=== PATIENT | female | born 1970 | race Caucasian/White ===

== ENCOUNTER → 2016-10-01 | Day surgery (SDC) | payer BC ==
[2016-09-25 11:44] VITALS: BMI 48.0
[~2016-10-01] VITALS: Ht 157.5 cm; Wt 119.5 kg
[~2016-10-01] MED LIST: ERGO500037 PO; LIDOCAINE HCL 2% 2 ML VIAL (20MG/ML) ONE; PROPOFOL IV EMULSION 10 MG/ML 20 ML VIAL IV ONE; SERT25TA PO; VITAMIN B12 INJ INJ
[2016-10-01 11:37] VITALS: Ht 157.5 cm; Wt 119.5 kg
--- NOTE | 2016-10-01 12:33 | Endo History and Physical ---
History & Physical Date of Service: October 01, 2016. Chief Complaint: Iron def anemia Referring Physician: Dr. Latrice Lemons History of Present Illness 46 yo presenting for EGD/Colonoscopy for asymptomatic iron deficiency anemia Past Surgical History Hx Cardiac Surgery: No Hx Internal Defibrillator: No Hx Pacemaker: No Hx Abdominal Surgery: Yes (GASTRIC BYPASS, TUBAL LIGATION, LAPAROSCOPY) Hx of Implantable Prosthesis: No Hx Post-Op Nausea and Vomiting: Yes Hx Cancer Surgery: No Hx Thoracic Surgery: No Hx Orthopedic: No Hx Urinary Tract Surgery: No Family History None Social History Smoking Status: Never Smoker Hx Substance Use: No Hx Alcohol Use: No Allergies Coded Allergies: NO KNOWN DRUG ALLERGIES (Verified Allergy, Unknown, ., 09/25/16) Current Medications Reported Home Medications Medications Dose Route/Sig Max Daily Dose Days Date Category Vitamin D 40275 Unit (Ergocalciferol) 50,000 Unit Cap 50,000 Unit PO WK 09/25/16 Reported Zoloft (Sertraline HCl) 25 Mg Tab 25 Mg PO HS 09/25/16 Reported Vital Signs Weight (Kilograms): 119.55 Height (Feet): 5 Height (Inches): 2 Date Time Temp Pulse Resp B/P Pulse Ox O2 Delivery O2 Flow Rate FiO2 10/01/16 11:43 36.8 82 18 147/70 97 Room Air Physical Exam General Appearance: WD/WN, no apparent distress Respiratory/Chest: Respiratory effort: no dyspnea Auscultation: breath sounds normal, CTA except as noted Cardiovascular: Apical Impulse: not displaced Heart Auscultation: RRR, normal S2 Assessment and Plan 46 yo presenting for EGD/Colonoscopy for anemia
--- NOTE | 2016-10-01 13:00 | GI REPORT ---
Procedure Date: 10/01/2016 12:36 PM Procedure: Upper GI endoscopy Indications: Iron deficiency anemia Medicines: General Anesthesia Complications: No immediate complications. Estimated blood loss: None. Estimated Blood Loss: Estimated blood loss: none. Procedure: Pre-Anesthesia Assessment: - Pre-Anesthesia Assessment: - Prior to the procedure, a History and Physical was performed, and patient medications, allergies and sensitivities were reviewed. The patient's tolerance of previous anesthesia was reviewed. Please see MyTime for complete details. - The risks and benefits of the procedure and the sedation options and risks were discussed with the patient. All questions were answered and informed consent was obtained. - Patient identification and proposed procedure were verified prior to the procedure by the physician and the nurse. The procedure was verified in the pre-procedure area in the procedure room. After obtaining informed consent, the endoscope was passed carefully and meticuously under direct vision and only advanced when the lumen was clearly identified, C02 insuflation was utilized throughout the entirity of the procedure. Throughout the procedure, the patient's blood pressure, pulse, and oxygen saturations were monitored continuously. After obtaining informed consent, the endoscope was passed under direct vision. Throughout the procedure, the patient's blood pressure, pulse, and oxygen saturations were monitored continuously. The scope was introduced through the mouth, and advanced to the jejunum. The upper GI endoscopy was accomplished without difficulty. The patient tolerated the procedure well. Findings: The examined esophagus was normal. Evidence of a Trevor-en-Y gastrojejunostomy was found. The gastrojejunal anastomosis was characterized by healthy appearing mucosa. The examined jejunum was normal. Impression: - Normal esophagus. - Trevor-en-Y gastrojejunostomy with gastrojejunal anastomosis characterized by healthy appearing mucosa. - Normal examined jejunum. - No specimens collected. Recommendation: - Discharge patient to home (with escort). - Perform a colonoscopy today. Roger Cabrera MD 10/01/2016 12:59:44 PM This report has been signed electronically. Note Initiated On: 10/01/2016 12:36 PM I attest to the content of the Intraoperative Record and orders documented therein, exceptions below
--- NOTE | 2016-10-01 13:02 | GI REPORT ---
Procedure Date: 10/01/2016 12:40 PM Procedure: Colonoscopy Indications: Iron deficiency anemia Medicines: General Anesthesia Complications: No immediate complications. Estimated blood loss: None. Estimated Blood Loss: Estimated blood loss: none. Procedure: Pre-Anesthesia Assessment: - Pre-Anesthesia Assessment: - Prior to the procedure, a History and Physical was performed, and patient medications, allergies and sensitivities were reviewed. The patient's tolerance of previous anesthesia was reviewed. Please see Weight Wins for complete details. - The risks and benefits of the procedure and the sedation options and risks were discussed with the patient. All questions were answered and informed consent was obtained. - Patient identification and proposed procedure were verified prior to the procedure by the physician and the nurse. The procedure was verified in the pre-procedure area in the procedure room. After obtaining informed consent, the endoscope was passed carefully and meticuously under direct vision and only advanced when the lumen was clearly identified, C02 insuflation was utilized throughout the entirity of the procedure. Throughout the procedure, the patient's blood pressure, pulse, and oxygen saturations were monitored continuously. After I obtained informed consent, the scope was passed under direct vision. Throughout the procedure, the patient's blood pressure, pulse, and oxygen saturations were monitored continuously. The scope was introduced through the anus and advanced to the terminal ileum, with identification of the appendiceal orifice and IC valve. The colonoscopy was performed without difficulty. The patient tolerated the procedure well. The quality of the bowel preparation was good. Findings: Internal hemorrhoids were found during retroflexion. The hemorrhoids were Grade I (internal hemorrhoids that do not prolapse). The terminal ileum appeared normal. The exam was otherwise without abnormality on direct and retroflexion views. Impression: - Internal hemorrhoids. - The examined portion of the ileum was normal. - The examination was otherwise normal on direct and retroflexion views. - No specimens collected. Recommendation: - Discharge patient to home (with escort). - Repeat colonoscopy in 10 years for screening purposes. - Anemia may be due gastric bypass anatomy, consider IV iron infusions and or [employer]OR causes Roger Cabrera MD 10/01/2016 1:01:08 PM This report has been signed electronically. Note Initiated On: 10/01/2016 12:40 PM I attest to the content of the Intraoperative Record and orders documented therein, exceptions below
--- NOTE | 2016-10-01 13:05 | Discharge Instructions ---
Endoscopy Patient Instructions Date / Procedure(s) Performed October 01, 2016. Colonoscopy, EGD Allergy Information Coded Allergies: NO KNOWN DRUG ALLERGIES (Verified Allergy, Unknown, ., 09/25/16) Discharge Date / Findings October 01, 2016. Normal EGD and colonoscopy Provider Instructions Activity Restrictions - No exercising or heavy lifting for 24 hours. - Do not drink alcohol the day of the procedure. - Do not drive a car or operate machinery until the day after the procedure. - Do not make any important decisions or sign important papers in 24 hours after the procedure. Following Day: - Return to full activity which may include returning to work/school. Diet Start your diet with liquids and light foods (jello, soup, juice, toast). Then eat your usual diet if not nauseated. Treatment For Common After Affects For mild abdominal pain, bloating, or excessive gas: - Rest - Eat lightly - Lie on right side Follow-Up Information Follow-up with Dr. Latrice Lemons as scheduled Anesthesia Information What You Should Know You have had a procedure that required some medicine to reduce anxiety and discomfort. This treatment is called moderate sedation. After receiving the treatment, you may be sleepy, but you will be able to breathe on your own. The effects of the treatment may last for several hours. Follow these instructions along with Activity/Diet recommendations noted above: * Do NOT do anything where dizziness or clumsiness would be dangerous. * Rest quietly at home today, then you can be up and about tomorrow. * Have a responsible person stay with you the rest of today. * You may have had an I.V. today. If so, you may take the dressing off later today. Recommendations Call your doctor if: * Trouble breathing * Continuous vomiting for more than 24 hours * Temperature above 101 degrees * Severe abdominal pain or bloating * Pain not relieved by pain medicine ordered * There is increased drainage or redness from any incision * A large amount of rectal bleeding greater than 2-3 tablespoons. (If you had a polyp/s removed or have hemorrhoids, a small amount of blood - from the rectum is to be expected.) * You have any unanswered questions or concerns. IN THE EVENT OF A SERIOUS EMERGENCY, GO TO THE NEAREST EMERGENCY ROOM Your discharge instructions were prepared by provider Roger Cabrera. Patient Instructions Signature Page Aggie Lu Patient (or Guardian) Signature/Date: I have read and understand the instructions given to me by my caregivers. Caregiver/RN/Doctor Signature/Date: The above-named patient and/or guardian has received patient instructions on this date. + Original Patient Signature Page (only) stays with chart. Please make copy for patient.
[2016-10-01 13:20] VITALS: BP 106/67; PULSE 74; O2SAT 100
--- NOTE | 2016-10-01 13:31 | Anesthesiology Progress Note ---
Anesthesia Post Op Note Date & Time October 01, 2016 at 13:31 Vital Signs Pain Intensity: 0 Vital Signs Past 12 Hours Date Time Temp Pulse Resp B/P Pulse Ox O2 Delivery O2 Flow Rate FiO2 10/01/16 13:20 74 16 106/67 100 Room Air 10/01/16 13:10 76 16 107/67 99 Room Air 10/01/16 13:00 74 16 98/56 98 Room Air 10/01/16 11:43 36.8 82 18 147/70 97 Room Air Notes Mental Status: alert / awake / arousable, participated in evaluation Pt Amnestic to Procedure: Yes Nausea / Vomiting: adequately controlled Pain: adequately controlled Airway Patency, RR, SpO2: stable & adequate BP & HR: stable & adequate Hydration State: stable & adequate Anesthetic Complications: no major complications apparent
== END | disposition home or self-care (01) ==
LOC: C.GI 11:17
PROVIDERS: ATTEND Internal Medicine
DX: D50.9 Iron deficiency anemia, unspecified (principal); Z98.84 Bariatric surgery status; K64.8 Other hemorrhoids

== ENCOUNTER 2016-11-29 05:09 | Day surgery (SDC) | payer BC ==
[2016-11-05 15:26] VITALS: BMI 49.0
[2016-11-05 15:38] LABS: BASO % 0.7 %; BASO ABS # 0.04 K/uL (0-0.2); EOS % 1.8 %; HEMATOCRIT 37.3 % (37-47); IG% 0.2 %; LYMPH % 24.3 %; LYMPH ABS # 1.36 K/uL (1.2-3.4); MEAN CELL VOLUME 72.1 fL (80-100); MEAN CORPUSCULAR HEMOGLOBIN 21.3 pg (25-34); MEAN CORPUSCULAR HGB CONC 29.5 g/dl (32-36); MEAN PLATELET VOLUME 9.5 fL (7.4-10.4); MONO % 7.7 %; NEUT % 65.3 %; PLATELET COUNT 270 K/uL (130-400); RED BLOOD COUNT 5.17 M/uL (4.2-5.4)
--- NOTE | 2016-11-05 15:51 | PAT Medication Instructions ---
Service Date Nov 05, 2016. Current Home Medication List Ergocalciferol (Vitamin D 81635 Unit), 50,000 UNIT PO WK Sertraline (Zoloft), 25 MG PO HS [Vitamin B12 Inj], 1 DOSE INJ MONTHLY Medication Instructions For Your Scheduled Surgery - Continue as directed: Ergocalciferol (Vitamin D 66094 Unit), 50,000 UNIT PO WK [Vitamin B12 Inj], 1 DOSE INJ MONTHLY - Take the following medications as scheduled the night before surgery: Sertraline (Zoloft), 25 MG PO HS If you have any questions please call us at [phone] or [phone] or [phone]
[2016-11-05 16:07] LABS: ANISOCYTOSIS PRESENT; COMPLETE YES; OVALOCYTES 1+
[2016-11-05 16:40] LABS: BUN/CREATININE RATIO 19.9 (10-20); CALCIUM 8.7 mg/dl (8.5-10.1); CREATININE 0.5 mg/dl (0.60-1.20); POTASSIUM 4.1 mmol/L (3.5-5.1)
[~2016-11-29] VITALS: Ht 157.5 cm; Wt 121.2 kg
[~2016-11-29 05:09] MED LIST changes: -LIDOCAINE HCL 2% 2 ML VIAL (20MG/ML) ONE; -PROPOFOL IV EMULSION 10 MG/ML 20 ML VIAL IV ONE
[2016-11-29 05:42] VITALS: BP 137/89; PULSE 72; TEMP 36.2; O2SAT 97; Ht 157.5 cm; Wt 121.2 kg
[2016-11-29] MEDS ORDERED: LACTATED RINGER'S 1000ML 1,000 ML IV SCH ×2 (06:00)
[2016-11-29] MEDS ORDERED: FERRIC SUBSULFATE 8 GM VIAL ONE (06:31)
[2016-11-29] MEDS ORDERED: DEXAMETHASONE SOD INJ 4 MG/ML VIAL ONE (06:52)
[2016-11-29] MEDS ORDERED: MIDAZOLAM HCL 1 MG/ML 2ML VIAL ONE (06:52)
[2016-11-29] MEDS ORDERED: FENTANYL CITRATE INJ 50 MCG/1 ML 2 ML VIAL ONE ×3 (06:52→08:16)
[2016-11-29] MEDS ORDERED: LIDOCAINE HCL 2% 2 ML VIAL (20MG/ML) ONE (06:52)
[2016-11-29] MEDS ORDERED: ROCURONIUM BROMID 50MG/5ML SYR ONE (06:52)
[2016-11-29] MEDS ORDERED: PROPOFOL IV EMULSION 10 MG/ML 20 ML VIAL IV ONE (06:52)
[2016-11-29] MEDS ORDERED: ONDANSETRON INJ 2 MG/ML 2 ML VIAL ONE ×2 (06:52→08:16)
--- NOTE | 2016-11-29 06:57 | History & Physical Bridge Note ---
H&P Re-Evaluation Bridge Note: I have examined the patient, reviewed the History & Physical and in the interval since the performance of the History & Physical I have noted the following changes of clinical significance: No changes noted
[2016-11-29] MEDS ORDERED: SCOPOLAMINE 1.5 MG TDSY TD ONE (07:02)
[2016-11-29] MEDS ORDERED: CEFAZOLIN SOD 1 GM VIAL ONE (07:11)
[2016-11-29] MEDS ORDERED: GLYCOPYRROLATE INJ 0.2 MG/ML VIAL ONE (07:32)
[2016-11-29] MEDS ORDERED: NEOSTIGMINE METHYLSULFATE 5 MG/5 ML SYR ONE (07:32)
[2016-11-29] MEDS ORDERED: PHENYLEPHRINE HCL INJ 10 MG/ML VIAL ONE (07:33)
--- NOTE | 2016-11-29 08:00 | [facility] Post Operative Brief Note ---
Immediate Operative Summary Operative Date Nov 29, 2016. Pre-Operative Diagnosis menorrhagia, endometrial polyp, h/o endometrial ablation Post-Operative Diagnosis menorrhagia, endometrial polyp vs submucosal fibroid Procedure(s) Performed Evaluation Under Anesthesia, Hysteroscopy, Dilation & Currettage, Polypectomy with Myosure Surgeon Dr. Sneed Transmission Design Engineer Surgeon(s) none Estimated Blood Loss 10mL Findings 1X1.5 CM sessile endometrial polyp vs submucosal fibroid Specimens A: Endometrial currettings B: Endometrial polyp vs. Fibroid Drains 300 ml urine Anesthesia GETA Complication(s) None Disposition Recovery Room / PACU
[2016-11-29] MEDS ORDERED: SODIUM CHLORIDE 0.9% 1000ML 1,000 ML IV SCH (08:05)
--- NOTE | 2016-11-29 08:09 | Discharge Instructions-SurgCtr ---
Discharge Instructions Date of Service Nov 29, 2016. Visit Reason for Visit: Heavy Periods, Endometrial Polysp, S/P Ablation Discharge Discharge Diagnosis / Problem: Hysteroscopy, polypectomy, D&C Discharge Goals Goal(s): Decrease discomfort, Improve function Activity Recommendations Activity Limitations: as noted below Lifting Limitations: gradually increase as tolerated Exercise/Sports Limitations: until after follow-up appointment May Resume Sexual Activity: after follow-up appointment Shower/Bathe: no limitations Driving or Machine Use: ACTIVITY RECOMMENDATIONS: * Avoid tampons, douching, hot tubs, pools, and intercourse until bleeding has stopped. * May shower as usual. * No strenuous activity for 24-48 hours. After 24-48 hours, you may do anything you feel like doing (driving and sports are okay). SPECIAL CARE INSTRUCTIONS: Special Diet: * Mild nausea may occur in the immediate post-operative period. * Take clear liquids such as tea, cola or bouillon until all nausea has subsided; you may then resume your normal diet. Special Care: * Light bleeding and vaginal spotting can last from a few days to 3-4 weeks. Call your doctor if bleeding becomes heavier than the heaviest part of your period. * Check your temperature twice a day for one week. If it goes above 100.4 degrees Fahrenheit (38.0 Celsius), notify your doctor. * Call your doctor's office for an appointment for 2 weeks after your surgery. FOLLOW-UP VISIT: Call your doctor's office for an appointment for 2 weeks after your surgery. Anesthesia . Post Anesthesia Instructions: If you have had General Anesthesia or IV Sedation: * Do not drive today. * Resume driving when surgeon permits. * Do not make important decisions or sign legal documents today. * Call surgeon for: 1. Temperature elevations greater than 101 degrees F. 2. Uncontrollable pain. 3. Excessive bleeding. 4. Persistent nausea and vomiting. 5. Medication intolerance (nausea, vomiting or rash). * For nausea and vomiting use only clear liquids such as: tea, soda, bouillon until nausea subsides, then gradually increase diet as tolerated. * If you have any concerns or questions, call your surgeon's office. If physician is unavailable and it is an emergency, call 911 or go to the nearest emergency room. . Diet Recommendations Home Diet: resume previous diet Procedures Procedures Performed: Evaluation Under Anesthesia, Hysteroscopy, Dilation & Currettage, Polypectomy with Myosure Pending Studies Studies pending at discharge: no Medical Emergencies . Who to Call and When: Medical Emergencies: If at any time you feel your situation is an emergency, please call 911 immediately. . Non-Emergent Contact Non-Emergency issues call your: Surgeon Call Non-Emergent contact if: temperature is above 100.5, your pain is not controlled, your pain is worsening, your pain is unusual for you . . "Provider Documentation" section prepared by Joe Sneed. .
[2016-11-29] MEDS ORDERED: ESMOLOL HCL 10 MG/ML 10 ML VIAL ONE (08:10)
[2016-11-29] MEDS ORDERED: LABETALOL HCL IV 5 MG/ML 20ML IV PRN (08:15)
[2016-11-29] MEDS ORDERED: HYDROmorphone INJ 1 MG/ML SYR IV PRN (08:15)
[2016-11-29] MEDS ORDERED: PROMETHAZINE HCL INJ 25 MG in SODIUM CHLORIDE 0.9% 50ML 50 ML IV PRN (08:15)
[2016-11-29] MEDS ORDERED: MEPERIDINE HCL 25 MG/ML CARP IV PRN (08:15)
[2016-11-29] MEDS ORDERED: MoRPHine SULFATE 4 MG/ML 1 ML CARP\\VIAL IV PRN ×2 (08:15)
[2016-11-29] MEDS ORDERED: FENTANYL CITRATE INJ 50 MCG/1 ML 2 ML VIAL IV PRN (08:15)
[2016-11-29] MEDS ORDERED: KETOROLAC TROMETHAMINE 30 MG/ML VIAL IV. PRN (08:15)
[2016-11-29] MEDS ORDERED: OXYCODONE/ACETAMINOPHEN 5-325 TAB PO PRN ×2 (08:15)
[2016-11-29] MEDS ORDERED: ATROPINE SULFATE 0.1 MG/ML 5ML SYR IV PRN (08:15)
[2016-11-29] MEDS ORDERED: ONDANSETRON INJ 2 MG/ML 2 ML VIAL IV PRN ×2 (08:15)
[2016-11-29] MEDS ORDERED: EpHEDrine SULFATE INJ 50 MG/ML AMP IV PRN (08:15)
--- NOTE | 2016-11-29 08:19 | [facility] Operative Report ---
Operative Report Operative Date Nov 29, 2016. Pre-Operative Diagnosis 46 yo female with h/o endometrial ablation, menorrhagia, endometrial polyp, morbid obesity Post-Operative Diagnosis menorrhagia, endometrial polyp vs submucosal fibroid Procedure(s) Performed Evaluation Under Anesthesia, Hysteroscopy, Dilation & Currettage, Polypectomy with Myosure Surgeon Dr. Sneed Sock Ironer Surgeon(s) none Estimated Blood Loss 10mL Findings EUA: Stage 2 cystocele, uterine prolapse 1X1.5 CM sessile endometrial polyp vs submucosal fibroid at superior endometrium Intrauterine adhesion/ synechia close to fundus Normal tubal ostia and endometrial lining Specimens A: Endometrial currettings B: Endometrial polyp vs. Fibroid Drains 300 ml urine, straight cath Anesthesia GETA Complication(s) None Disposition Recovery Room / PACU Description of Procedure The patient was taken to OR where anesthesia was given without difficulty. She was placed in lithotomy position and draped in sterile fashion The bladder was drained with straight cath Exam under anesthesia was done with above findings Henry valves were placed in vagina and the cervix was grasped with single tooth tenaculum. It was dilated with Prank dilators until #25. The hysteroscope was introduced from cervix and the cervical canal was noted to be normal Intrauterine cavity was visualized, bilateral tubal ostia were seen There was a 1x1.5 sessile polyp vs submucosal fibroid at the fundal region left to the midline. There was a synechia close to the polyp. The pictures were taken The Myosure was introduced. The polyp vs fibroid was excised under direct visualization, Then the synechia was released with the tip of Myosure. Excellent hemostasis was achieved. The rest of the endometrium was normal The hysteroscope was ended The fluid was removed The endometrium was curetted with small sharp curette and send to pathology. The tenakulum and all instruments were removed from cervix and vagina It was hemostatic No complications happened. The patient tolerated the procedure well She was given 2 gr of Cefazolin before surgery and she was taken to PACU in stable condition The sponge instrument count was correcx2 I attest to the content of the Intraoperative Record and any orders documented therein. Any exceptions are noted below.
[2016-11-29 08:45] VITALS: BP 125/62; PULSE 78; TEMP 36.5; O2SAT 96
[2016-11-29 09:15] VITALS: BP 134/76; PULSE 78; TEMP 36.6; O2SAT 97
[2016-11-29 09:30] VITALS: BP 123/74; O2SAT 97
--- NOTE | 2016-11-29 09:38 | Anesthesiology Progress Note ---
Anesthesia Post Op Note Date & Time Nov 29, 2016 at 09:38 Vital Signs Pain Intensity: 3.0 Vital Signs Past 12 Hours Date Time Temp Pulse Resp B/P (MAP) Pulse Ox O2 Delivery O2 Flow Rate FiO2 11/29/16 09:15 36.6 78 18 134/76 97 Room Air 11/29/16 08:45 36.5 78 18 125/62 96 Room Air 11/29/16 08:40 67 16 113/58 99 Oxymask 3 11/29/16 08:30 36.3 70 16 105/60 96 Oxymask 3 11/29/16 08:20 80 16 111/66 98 Oxymask 5 11/29/16 08:10 85 16 108/73 100 Oxymask 10 11/29/16 08:04 36.7 86 16 121/79 100 Oxymask 10 11/29/16 05:42 36.2 72 20 137/89 (105) 97 Room Air Notes Mental Status: alert / awake / arousable, participated in evaluation Pt Amnestic to Procedure: Yes Nausea / Vomiting: adequately controlled Pain: adequately controlled Airway Patency, RR, SpO2: stable & adequate BP & HR: stable & adequate Hydration State: stable & adequate Anesthetic Complications: no major complications apparent
== END 2016-11-29 09:51 | disposition home or self-care (01) ==
LOC: C.ACU 05:09
PROVIDERS: ATTEND Obstetrics & Gynecology
DX: N92.0 Excessive and frequent menstruation with regular cycle (principal); N84.0 Polyp of corpus uteri; D26.1 Other benign neoplasm of corpus uteri; Z98.84 Bariatric surgery status; E66.01 Morbid (severe) obesity due to excess calories; F32.9 Major depressive disorder, single episode, unspecified; Z68.42 Body mass index [BMI] 45.0-49.9, adult

== ENCOUNTER 2020-05-09 14:38 | Inpatient (IN) ==
[2020-05-09] MEDS ORDERED: SODIUM CHLORIDE 0.9% 1000ML 1,000 ML IV ONE (15:27)
[2020-05-09 15:39] LABS: Mean Corpuscular Hemoglobin 27.6 pg (25-34); Mean Corpuscular Hgb Conc 32.5 g/dL (32-36); Mean Corpuscular Volume 84.9 fL (80-100); Mean Platelet Volume 9.7 fL (7.4-10.4); Nucleated RBC # (auto) 0.08 K/uL (0-0); Nucleated RBC % (auto) 0.8 %; Platelet Count 193 K/uL (130-400); RDW Coefficient of Variation 15.5 % (11.5-14.5); RDW Standard Deviation 45.5 fL (36.4-46.3); Red Blood Count 4.71 M/uL (4.2-5.4); White Blood Count 9.57 K/uL (4.8-10.8)
--- NOTE | 2020-05-09 15:44 | Electrocardiogram Report ---
Test Reason : Blood Pressure : / mmHG Vent. Rate : 115 BPM Atrial Rate : 115 BPM P-R Int : 158 ms QRS Dur : 086 ms QT Int : 352 ms P-R-T Axes : 036 007 -20 degrees QTc Int : 486 ms Sinus tachycardia Poor R wave progression, consider anterior NV vs. lead placement vs. LVH T wave abnormality, consider anterior ischemia Abnormal ECG When compared with ECG of 21-OCT-2017 14:37, Inverted T waves have replaced nonspecific T wave abnormality in Anterior leads Confirmed by Chandra Rodriguez ([id number]) on 05/09/2020 3:44:23 PM Referred By: SELF Confirmed By:Chandra Rodriguez
[2020-05-09 15:48] LABS: iSTAT Creatinine 0.5 mg/dl (0.6-1.3); iSTAT Hemoglobin 12.9 g/dl (12.0-16.0); iSTAT Ionized Calcium 1.18 mmol/l (1.12-1.32); iSTAT Potassium 3.7 mmol/L (3.3-5.0)
--- NOTE | 2020-05-09 15:48 | Emergency Department Note ---
Impression & Plan Pulmonary embolism, Chest pain, Acute dyspnea ED Provider Note NAME: BERT ZUÑIGA AGE: 50 SEX: F : 1970 ARRIVES VIA: Walk-In INFORMANT: Patient, ED PROVIDER(S): Chandra Alvarez DO CHIEF COMPLAINT: Chest pain HPI: The patient is a 50-year-old female who presented to the emergency department for an evaluation of chest pain. The patient describes left-sided chest pain which began approximately 2 to 3 days ago. She was recently diagnosed with breast cancer. She had mastectomy followed by lymph node resection. She was found to have positive lymph nodes. She is currently scheduled for chemotherapy followed by radiation therapy. She was scheduled for another round of chemotherapy. When she went to see her chemotherapy cancer doctor she told him about the chest pain she been having. She was scheduled to have an echocardiogram and went to see [facility] cardiology for the echocardiogram. I received a phone call from Dr. Fierro who did the procedure. He was very concerned about the patient's echocardiogram. She had significant findings including right-sided heart strain and a dilated right ventricle. He was concerned the patient may be suffering from a pulmonary malaise and. The patient denies having any lower extremity swelling or pain. She denies having any recent immobilizations but she did have surgery for the breast cancer. The patient states that she has been having shortness of breath which worsens with exertion. She also has some worsening shortness of breath with lying flat. She is also noted chest pain. The chest pain appears to be more pleuritic in nature and not related to exertion. ROS: See above HPI for pertinent positives & negatives. A total of 10 systems reviewed and were otherwise negative. PAST MEDICAL HISTORY: See Below PAST SURGICAL HISTORY: See Below FAMILY HISTORY: See Below SOCIAL HISTORY: See Below HOME MEDICATIONS: See Below ALLERGIES: See Below VITALS: See Below PHYSICAL EXAMINATION: GENERAL: Patient is awake alert in no acute distress patient is resting comfortably and showing no signs of anxiety EYES: The conjunctivae are clear. The pupils are round and reactive. EARS, NOSE, MOUTH AND THROAT: The nose is without any evidence of any deformity. NECK: The neck is nontender and supple. RESPIRATORY: Shallow respirations were noted. There were no rales rhonchi or wheezing. There was no conversational dyspnea appreciated. CARDIOVASCULAR: Tachycardic rate with regular rhythm was noted. There was no definite murmur. GASTROINTESTINAL: The abdomen is soft. Abdomen is nontender. MUSCULOSKELETAL/EXTREMITIES: There is no evidence of gross deformity full range of motion is noted in the hips and shoulders. SKIN: There is no obvious evidence of any rash. No significant pedal edema or calf tenderness was elicited. NEUROLOGIC: Patient is awake alert and oriented x 3. MEDICAL DECISION MAKING: The patient is a 50-year-old female with a history of breast cancer who prese nted to the emergency department for shortness of breath. The patient developed chest pain over the last few days. She was seen by her primary oncologist and sent for an echocardiogram. The echocardiogram revealed significant right-sided heart strain and RV dilation. The patient was sent directly to the emergency department for suspicion of venous pulmonary thromboembolic disease. The patient was started on IV heparin in the emergency department. She was also given IV fluids. I discussed the patient's laboratory and radiographic studies with her. CT did appear to be consistent with pulmonary embolism. I discussed this case with the on-call [facility] hospitalist group. They have agreed to evaluate the patient in the emergency department for further management and disposition. The patient was found to have a mild elevation in her troponin as well as an abnormal EKG. I feel she would do well with inpatient treatment. Initially the patient's port was accessed for the contrast CT however the contrast extravasated into the left chest wall. The CT was then repeated with a peripheral IV. I would recommend not using the patient's port until cleared by either the patient's oncologist, surgeon or the IV team. Triage Nursing notes reviewed. Prior medical records reviewed Vital Signs: reviewed and remarkable for tachycardia Differential diagnosis: Cardiac ischemia, aortic dissection, pulmonary embolism, pneumothorax, pneumonia, pericarditis, myocarditis, esophageal rupture, GERD, cholecystitis, pancreatitis, musculoskeletal, as well as other pathologies. ER treatment provided: See below Diagnostics interpreted by me: ECG: EKG was obtained in the emergency department. My interpretation is sinus tachycardia 115 bpm. Diffuse T wave abnormalities were noted. Incomplete right bundle branch block pattern was noted. Lateral ST segment depressions were noted. This was compared to a tracing from October 212017. The ischemic changes appear new compared to the earlier tracing. Cardiac Monitoring: An order was placed for continuous cardiac monitoring. The monitor shows a rate of 110 bpm with sinus tachycardia rhythm. Laboratory studies: As stated above and show below. Imaging studies: See below Consultation(s): 1830: I discussed this case with Dr. Price who is on-call for the [facility] hospitalist group. She will evaluate the patient in the emergency department for further management and disposition. ED COURSE: Procedures: none PDMP:reviewed and no issues Critical Care: I have personally spent greater than 60 minutes of critical care time in the direct management of this patient. This includes bedside care, interpretation of diagnostic studies, and testing, discussion with consultants, patient, and family members, and other required patient management activities. This 60 minutes is in excess of all separately billable procedures. Past Med/Surg History Medical History FH: mastectomy (03/07/20) Malignant neoplasm of upper-outer quadrant of right breast in female, estrogen receptor positive (01/12/20) Surgical History Status post vaginal hysterectomy (~10/2016) Family History Grandfather (Maternal) Lung cancer Unknown Stomach cancer Unknown Ovarian cancer Social History Smoking Status: Never smoker Second Hand Exposure: Yes; Hx Alcohol Use: Yes Alcohol type: wine Alcohol Intake Frequency: Monthly or Less Hx Substance Use: No Preferred Language: Bahamian Communication Ability: Effective Hearing Ability: Hard of Hearing Paper Conservator Required: No Beliefs That Will Affect Care: None marital status: marital status details: 25 years Current Living Situation: Spouse and Family Current Living Situation Comment: youngest daughter lives with patient and current occupational status: employed current occupation: on FMLA from [employer] How many Children do You have: 1 How many Children do You have Comment: 1 daughter, 2 stepdaughters Feels Safe at Home: Yes Childhood Exposure to Second-Hand Smoke: Yes caffeine: Yes (coffee and soda) during the past year weight has: remained stable Dental Care, Regularly: No Physical Activity Frequency: 1-2 Times per Week Physical Activity Frequency Comment: walks Seatbelt Use: sometimes Sunscreen Use: Yes Assistive Devices: Glasses Allergies Allergies Allergy/AdvReac Type Severity Reaction Status Date / Time No Known Allergies Allergy Unverified 04/06/20 09:26 Home Meds Home Medications Medication Instructions Recorded Confirmed ERGOCALCIFEROL (VITAMIN D 26661 50,000 unit PO WK #0 cap 09/25/16 UNIT) VITAMIN B12 INJ 1 dose INJ MONTHLY #0 11/05/16 CYCLOBENZAPRINE HCL (FLEXERIL) 5 mg PO TID PRN #0 tab 10/21/17 Sertraline (Zoloft) 50 mg PO HS #0 tab 10/21/17 Ibuprofen 600 mg PO Q4H PRN tab 04/06/20 Previous Rx's Medication Instructions Recorded OXYCODONE/ACETAMINOPHEN 5MG/325MG 1 - 2 tab PO Q4H PRN #20 tab 11/07/17 (PERCOCET 5MG/325MG) ONDANSETRON HCL (ZOFRAN) 4 mg PO Q4 PRN #20 tab 11/08/17 Results & Data (ED) Vital Signs Vital Signs - 24 hr 05/09/20 14:40 05/09/20 14:45 05/09/20 15:30 Temperature 36.3 C L Temperature Source Oral Pulse Rate 124 H 111 H Pulse Rate from SpO2 Sensor Pulse Rhythm Regular Respiratory Rate 27 H 22 Respiratory Effort / Characteristics Short of Breath SOB on Exertion Non-Labored Spontaneous Respiratory Depth Shallow Normal Respiratory Pattern Tachypnea Regular Pulse Oximetry 93 93 94 Oxygen Delivery Method Room Air Room Air Nasal Cannula Oxygen Flow Rate 2 Sepsis Recent Fever Within 48 Hours No Sepsis New/Unexplained Change in Mental Status No Sepsis Action Taken by Nursing No Action Required 05/09/20 15:40 05/09/20 16:01 05/09/20 16:30 Temperature Temperature Source Pulse Rate 112 H 109 H 109 H Pulse Rate from SpO2 Sensor 112 H 108 H 108 H Pulse Rhythm Respiratory Rate 19 17 17 Respiratory Effort / Characteristics Respiratory Depth Respiratory Pattern Pulse Oximetry 98 96 96 Oxygen Delivery Method Oxygen Flow Rate Sepsis Recent Fever Within 48 Hours Sepsis New/Unexplained Change in Mental Status Sepsis Action Taken by Nursing 05/09/20 17:00 05/09/20 17:30 05/09/20 18:00 Temperature Temperature Source Pulse Rate 102 H 109 H 101 H Pulse Rate from SpO2 Sensor 104 H 108 H 104 H Pulse Rhythm Respiratory Rate 17 17 17 Respiratory Effort / Characteristics Respiratory Depth Respiratory Pattern Pulse Oximetry 96 96 96 Oxygen Delivery Method Oxygen Flow Rate Sepsis Recent Fever Within 48 Hours Sepsis New/Unexplained Change in Mental Status Sepsis Action Taken by Long Term Medications Current Medication List: was personally reviewed by me Laboratory Data Attestation: I reviewed the patient's lab results. Result diagrams: 05/09/20 15:29 05/09/20 15:29 Lab Results 05/09/20 05/09/20 05/09/20 Range/Units 15:29 15:29 15:29 WBC 9.57 (4.8-10.8) K/uL RBC 4.71 (4.2-5.4) M/uL Hgb 13.0 (12.0-16.0) g/dL POC Hgb (12.0-16.0) g/dl Hct 40.0 (37-47) % POC Hct (37-47) % MCV 84.9 (80-100) fL MCH 27.6 (25-34) pg MCHC 32.5 (32-36) g/dL RDW Std Deviation 45.5 (36.4-46.3) fL RDW Coeff of Jake 15.5 H (11.5-14.5) % Plt Count 193 (130-400) K/uL MPV 9.7 (7.4-10.4) fL Absolute Nucleated RBC 0.08 H (0-0) K/uL Nucleated RBC % (auto) 0.8 % Neutrophils % (Manual) 62.4 % Lymphocytes % (Manual) 17.5 % Monocytes % (Manual) 7.0 % Eosinophils % (Manual) 3.5 % Basophils % (Manual) 2.6 % Metamyelocytes % (Man) 4.4 % Myelocytes % (Man) 2.6 % Neutrophils # (Manual) 5.97 (1.4-6.5) K/uL Total Absolute Neuts 5.97 (1.4-6.5) K/uL Lymphocytes # (Manual) 1.67 (1.2-3.4) K/uL Total Abs Lymphocytes 1.67 (1.2-3.4) K/uL Monocytes # (Manual) 0.67 H (0.11-0.59) K/uL Eosinophils # (Manual) 0.33 (0-0.5) K/uL Basophils # (Manual) 0.25 H (0-0.2) K/uL Metamyelocytes # (Man) 0.42 H (0-0) K/uL Myelocytes # (Manual) 0.25 H (0-0) K/uL PT 11.0 (9.0-12.0) Seconds INR 1.0 (0.9-1.1) APTT 24.9 (21.0-31.0) Seconds PTT Ratio 0.9 POC Sodium (135-144) mmol/L Sodium 142 (136-145) mmol/L POC Potassium (3.3-5.0) mmol/L Potassium 3.7 (3.5-5.1) mmol/L POC Chloride (101-112) mmol/L Chloride 109 H (98-107) mmol/L Carbon Dioxide 29 (21-32) mmol/L POC Total CO2 (24-31) mmol/L Anion Gap 4.0 (3-11) POC Anion Gap (16-25) mmol/L POC BUN (7-18) mg/dl BUN 8 (7-18) mg/dl Creatinine 0.65 (0.6-1.2) mg/dl POC Creatinine (0.6-1.3) mg/dl Est Cr Clr Drug Dosing 128.5 ml/min Est GFR ( Amer) 120.8 Est GFR (Non-Af Amer) 104.3 BUN/Creatinine Ratio 12.1 (10-20) Glucose 110 H (70-99) mg/dl POC Glucose (other) (70-99) mg/dl Calcium 9.4 (8.5-10.1) mg/dl POC Ioniz Calcium Lin (1.12-1.32) mmol/l Total Bilirubin 0.4 (0.2-1) mg/dl AST 44 H (15-37) U/L ALT 54 (12-78) U/L Alkaline Phosphatase 152 H (45-117) U/L Troponin I 0.227 H* (0-0.045) ng/ml Total Protein 7.5 (6.4-8.2) gm/dl Albumin 3.7 (3.4-5.0) gm/dl Globulin 3.8 (2.5-4.0) gm/dl Albumin/Globulin Ratio 1.0 (0.9-2) Lipase 115 (73-393) U/L 05/09/20 Range/Units 15:36 WBC (4.8-10.8) K/uL RBC (4.2-5.4) M/uL Hgb (12.0-16.0) g/dL POC Hgb 12.9 (12.0-16.0) g/dl Hct (37-47) % POC Hct 38 (37-47) % MCV (80-100) fL MCH (25-34) pg MCHC (32-36) g/dL RDW Std Deviation (36.4-46.3) fL RDW Coeff of Jake (11.5-14.5) % Plt Count (130-400) K/uL MPV (7.4-10.4) fL Absolute Nucleated RBC (0-0) K/uL Nucleated RBC % (auto) % Neutrophils % (Manual) % Lymphocytes % (Manual) % Monocytes % (Manual) % Eosinophils % (Manual) % Basophils % (Manual) % Metamyelocytes % (Man) % Myelocytes % (Man) % Neutrophils # (Manual) (1.4-6.5) K/uL Total Absolute Neuts (1.4-6.5) K/uL Lymphocytes # (Manual) (1.2-3.4) K/uL Total Abs Lymphocytes (1.2-3.4) K/uL Monocytes # (Manual) (0.11-0.59) K/uL Eosinophils # (Manual) (0-0.5) K/uL Basophils # (Manual) (0-0.2) K/uL Metamyelocytes # (Man) (0-0) K/uL Myelocytes # (Manual) (0-0) K/uL PT (9.0-12.0) Seconds INR (0.9-1.1) APTT (21.0-31.0) Seconds PTT Ratio POC Sodium 142 (135-144) mmol/L Sodium (136-145) mmol/L POC Potassium 3.7 (3.3-5.0) mmol/L Potassium (3.5-5.1) mmol/L POC Chloride 105 (101-112) mmol/L Chloride (98-107) mmol/L Carbon Dioxide (21-32) mmol/L POC Total CO2 26 (24-31) mmol/L Anion Gap (3-11) POC Anion Gap 16.0 (16-25) mmol/L POC BUN 8 (7-18) mg/dl BUN (7-18) mg/dl Creatinine (0.6-1.2) mg/dl POC Creatinine 0.5 L (0.6-1.3) mg/dl Est Cr Clr Drug Dosing ml/min Est GFR ( Amer) Est GFR (Non-Af Amer) BUN/Creatinine Ratio (10-20) Glucose (70-99) mg/dl POC Glucose (other) 115 H (70-99) mg/dl Calcium (8.5-10.1) mg/dl POC Ioniz Calcium Lin 1.18 (1.12-1.32) mmol/l Total Bilirubin (0.2-1) mg/dl AST (15-37) U/L ALT (12-78) U/L Alkaline Phosphatase (45-117) U/L Troponin I (0-0.045) ng/ml Total Protein (6.4-8.2) gm/dl Albumin (3.4-5.0) gm/dl Globulin (2.5-4.0) gm/dl Albumin/Globulin Ratio (0.9-2) Lipase (73-393) U/L Administered Medications Discontinued Medications Sodium Chloride (Nss 1000ml) 1,000 mls @ 999 mls/hr IV .Q1H1M ONE Stop: 05/09/20 16:27 Last Admin: 05/09/20 17:27 Dose: 999 mls/hr Documented by: [id number] Imaging Data Radiologist's Impression: Patient: BERT ZUÑIGA Admit Date: 05/09/20 MR#: [id number] Address1: [address] [place] [address] Acct ID:[id number] Address2: Date: 1970 [facility] Zip: [place] [address] Age: 50 Location: ED Sex: F Room/Bed: Att Phy: Diagnosis: POSSIBLE DVT, SOB Precious Phy: Latrice Lemons DO Service Date: 05/09/20 Fam Phy: Interpreting Phy: Mick Orozco MD Admit Phy: Ordering Phy: Chandra Alvarez DO cc: ~ XR chest 1V portable CLINICAL HISTORY: Atypical chest pain COMPARISON STUDY: No previous studies for comparison. FINDINGS: There is a left-sided A-Port catheter. There is moderately extensive extravasated contrast surrounding the port. There is no failure. There is no focal pulmonary consolidation. There are no pleural effusions.[ IMPRESSION: 1. There is a moderate volume of extravasated contrast surrounding the left- sided A-Port catheter 2. Otherwise no active disease in the chest. ACT 112: Negative or not required by law. Electronically signed by: Mick Orozco M.D. 05/09/2020 5:03 PM Dictated: 05/09/201700 Transcribed: 05/09/201700 Patient: BERT ZUÑIGA Admit Date: 05/09/20 MR#: [id number] Address1: [address] [facility] Acct ID:[id number] Address2: Date: 1970 [facility] Zip: [place] [id number] Age: 50 Location: ED Sex: F Room/Bed: Att Phy: Diagnosis: POSSIBLE DVT, SOB Precious Phy: Latrice Lemons DO Service Date: 05/09/20 Fam Phy: Interpreting Phy: Mick Orozco MD Admit Phy: Ordering Phy: Chandra Alvarez DO cc: ~ CT ANGIOGRAM OF THE CHEST CLINICAL HISTORY: Atypical chest pain. Possible pulmonary embolism. COMPARISON STUDY: Chest x-ray performed the same day TECHNIQUE: Following the IV administration of 139 mL of Optiray-320, CT angiogram of the thorax was performed from the thoracic inlet to the lung bases utilizing the pulmonary embolus protocol. Images are reviewed in the axial, sagittal, and coronal planes. IV contrast was administered. The initial contrast injection resulted in contrast extravasation into the left breast when utilizing a left A-Port. The initial contrast bolus consistent of 60 cc. On rescanning, additional 79 cc of Optiray 320 was injected. MIP imaging was performed. A dose lowering technique was utilized adhering to the principles of ALARA. CT DOSE: 763.44 mGy.cm FINDINGS: There is hepatic steatosis. There are postsurgical changes involving the stomach. There is a small pericardial effusion. No pathologically enlarged axillary mediastinal or hilar lymph nodes were visualized. There was no evidence of thoracic aortic dilatation. There are bilateral pulmonary artery filling defects indicative of acute bilat eral pulmonary embolism. There is no evidence of significant right ventricular strain. No pleural effusions are visualized. There are no pleural effusions. There is no pneumothorax. There is no focal pulmonary consolidation. There was no evidence of focal pulmonary consolidation. IMPRESSION: 1. Acute bilateral pulmonary embolism. 2. Extravasated contrast within the left breast. ACT 112: Negative or not required by law. Electronically signed by: Mick Orozco M.D. 05/09/2020 6:01 PM Dictated: 05/09/201749 Transcribed: 05/09/201753 Blood Pressure Blood Pressure Findings: Normal blood pressure Discharge Plan Visit Data Chief Complaint: Shortness of Breath/Dyspnea Stated Complaint: POSSIBLE DVT, SOB ED Provider: Chandra Alvarez Discharge Problem: Pulmonary embolism, Chest pain, Acute dyspnea Patient Disposition: Being Evaluated by Hospitalist Condition: Good Forms Stand Alone Forms: [facility] Prescriptions Prescriptions: No Action Ibuprofen 200 mg tablet 600 mg PO Q4H PRN (Reason: Pain, HUTTON, Cramping, Edema) RF: 0 ERGOCALCIFEROL (VITAMIN D 83457 UNIT) 50,000 UNIT capsule 50,000 unit PO WK Qty: 0 RF: 0 VITAMIN B12 INJ 1 dose INJ MONTHLY Qty: 0 RF: 0 CYCLOBENZAPRINE HCL (FLEXERIL) 5 MG tablet 5 mg PO TID PRN (Reason: PRN) Qty: 0 RF: 0 Sertraline (Zoloft) 50 MG tablet 50 mg PO HS Qty: 0 RF: 0 OXYCODONE/ACETAMINOPHEN 5MG/325MG (PERCOCET 5MG/325MG) tablet 1 - 2 tab PO Q4H PRN (Reason: HUTTON, Cramping, edema) Qty: 20 RF: 0 ONDANSETRON HCL (ZOFRAN) 4 MG tablet 4 mg PO Q4 PRN (Reason: Nausea) Qty: 20 RF: 0 Referrals Referrals: Latrice Lemons DO [Primary Care Provider] - Discharge Problem: Pulmonary embolism Qualifiers: Pulmonary embolism type: unspecified Chronicity: acute Acute cor pulmonale presence: with acute cor pulmonale Qualified Code(s): I26.09 - Other pulmonary embolism with acute cor pulmonale Chest pain Qualifiers: Chest pain type: unspecified Qualified Code(s): R07.9 - Chest pain, unspecified
[2020-05-09 15:53] LABS: Partial Thromboplastin Ratio 0.9; Partial Thromboplastin Time 24.9 Seconds (21.0-31.0)
[2020-05-09 15:56] LABS: Albumin Level 3.7 gm/dl (3.4-5.0); BUN Creatinine Ratio 12.1 (10-20); Calcium 9.4 mg/dl (8.5-10.1); Creatinine Clr Calc Pharmacy 128.5 ml/min; Est GFR (African American) 120.8; Est GFR (Non-African American) 104.3; Potassium 3.7 mmol/L (3.5-5.1)
[2020-05-09 16:14] LABS: Bilirubin,Total 0.4 mg/dl (0.2-1); Globulin 3.8 gm/dl (2.5-4.0); Total Protein 7.5 gm/dl (6.4-8.2); Troponin I 0.227 ng/ml (0-0.045)
[2020-05-09 16:32] LABS: ALC (manual) 1.67 K/uL (1.2-3.4); ANC (manual) 5.97 K/uL (1.4-6.5); Basophils # (manual) 0.25 K/uL (0-0.2); Basophils % (manual) 2.6 %; Eosinophils # (manual) 0.33 K/uL (0-0.5); Eosinophils % (manual) 3.5 %; Lymphocytes # (manual) 1.67 K/uL (1.2-3.4); Lymphocytes % (manual) 17.5 %; Metamyelocytes # (manual) 0.42 K/uL (0-0); Metamyelocytes % (manual) 4.4 %; Monocytes # (manual) 0.67 K/uL (0.11-0.59); Myelocytes # (manual) 0.25 K/uL (0-0); Myelocytes % (manual) 2.6 %; Neutrophils # (manual) 5.97 K/uL (1.4-6.5); Neutrophils % (manual) 62.4 %
[2020-05-09] MEDS ORDERED: OPTIRAY 320 125ml IV ONE (16:32)
--- NOTE | 2020-05-09 17:04 | XRay Report ---
XR chest 1V portable CLINICAL HISTORY: Atypical chest pain COMPARISON STUDY: No previous studies for comparison. FINDINGS: There is a left-sided A-Port catheter. There is moderately extensive extravasated contrast surrounding the port. There is no failure. There is no focal pulmonary consolidation. There are no pl eural effusions.[ IMPRESSION: 1. There is a moderate volume of extravasated contrast surrounding the left-sided A-Port catheter 2. Otherwise no active disease in the chest. ACT 112: Negative or not required by law. Electronically signed by: Mick Orozco M.D. 05/09/2020 5:03 PM
[2020-05-09] MEDS ORDERED: Heparin IV Adult Wt-Based Standard WITH Bolus Protocol IV STA (17:45)
--- NOTE | 2020-05-09 18:03 | CT Scan Report ---
CT ANGIOGRAM OF THE CHEST CLINICAL HISTORY: Atypical chest pain. Possible pulmonary embolism. COMPARISON STUDY: Chest x-ray performed the same day TECHNIQUE: Following the IV administration of 139 mL of Optiray-320, CT angiogram of the thorax was p erformed from the thoracic inlet to the lung bases utilizing the pulmonary embolus protocol. Images a re reviewed in the axial, sagittal, and coronal planes. IV contrast was administered. The initial con trast injection resulted in contrast extravasation into the left breast when utilizing a left A-Port. The initial contrast bolus consistent of 60 cc. On rescanning, additional 79 cc of Optiray 320 was i njected. MIP imaging was performed. A dose lowering technique was utilized adhering to the principle s of ALARA. CT DOSE: 763.44 mGy.cm FINDINGS: There is hepatic steatosis. There are postsurgical changes involving the stomach. There is a small pericardial effusion. No pathologically enlarged axillary mediastinal or hilar lymph nodes were visualized. There was no evidence of thoracic aortic dilatation. There are bilateral pulmonary artery filling defects indicative of acute bilateral pulmonary embolism . There is no evidence of significant right ventricular strain. No pleural effusions are visualized. There are no pleural effusions. There is no pneumothorax. There is no focal pulmonary consolidation. There was no evidence of focal pulmonary consolidation. IMPRESSION: 1. Acute bilateral pulmonary embolism. 2. Extravasated contrast within the left breast. ACT 112: Negative or not required by law. Electronically signed by: Mick Orozco M.D. 05/09/2020 6:01 PM
[2020-05-09] MEDS ORDERED: POLYETHYLENE (MIRALAX) 17 GM PACK PO PRN (18:32)
[2020-05-09] MEDS ORDERED: HEPARIN SOD (PORCINE) 1000 UNIT/ML 10 ML VIAL ONE (18:40)
[2020-05-09] MEDS: HEPARIN SODIUM/DEXTROSE 25,000 UNITS/500 ML BAG IV SCH (18:43)
--- NOTE | 2020-05-09 19:55 | History & Physical Report ---
Date of Service May 09, 2020 Assessment & Plan (1) Acute respiratory failure with hypoxia: (2) Pulmonary embolism: (3) Chest pain: Progressive dyspnea for the past 3 days B/l PE on CTA , R heart strain and dilated RV on outpt Echo Started on IV heparin, will continue Currently on 2L of O2 Suppl. O2 as needed, will try wean off O2 For chest pain - lidocaine patch, cont. home oxycodone/ acetaminophen close cardiopulm. monitoring in PCU PE likely 2/2 hypercoag. state 2/2 malignancy Follows w/ heme/ onc -Dr. Bonilla for right breast ca who referred her her for further eval of dyspnea When ready for DC may discuss PO anticoagulation w/ Dr. Bonilla (4) Morbid obesity: BMI 48 hx of gastric bypass (5) Malignant neoplasm of upper-outer quadrant of right breast in female, estrogen receptor positive: S/p mastectomy w/ Dr. Ibanez (03/2020) Follows w/ Dr. Bonilla for chemotherapy DVT ppx - currently on IV heparin Code: Full History of Present Illness Chief Complaint: Shortness of breath, b/l PE Primary Care Provider: Latrice Lemons, Mrs. Lu is a 50 y/o F with recent dg. of breast ca ER/RI positive, HER-2 negative, s/p right mastectomy w/ Dr. Ibanez (03/07/2020) and started chemotherapy with Dr. Bonilla (pt reports having chemo treatment 2 weeks ago), iron def. anemia, obesity s/p gastric bypass surgery, who now presents with progressive shortness of breath of past 3 days and left posterior chest pain, found to have b/l PE with R heart strain and dilated RV. Pt was seeing her oncologist to receive chemotherapy but because of her symptoms of shortness of breath she was sent for echocardiogram. Echo was obtained and Dr. Ngo noted R heart strain and dilated RV and recommended further evaluation and treatment in inpt. setting. In the ED pt underwent CTA which confirmed b/l PE. She was started on IV heparin, currently requiring 2 L of suppl. O2. She is able to speak in full sentences. Denies any LE edema or pain. Reports left posterior chest pain. Allergies Allergy/AdvReac Type Severity Reaction Status Date / Time No Known Allergies Allergy Unverified 05/09/20 19:30 Home Medications Medication Instructions Recorded Confirmed Type cyanocobalamin (vitamin B-12) 1,000 mcg IM MONTHLY 05/09/20 05/09/20 History ergocalciferol (vitamin D2) 50,000 unit PO WK 05/09/20 05/09/20 History lidocaine-prilocaine 1 applic TOPICAL .PRN/UD PRN 05/09/20 05/09/20 History lorazepam 0.5 mg PO HS 05/09/20 05/09/20 History oxycodone-acetaminophen 1 tab PO Q6H PRN 05/09/20 05/09/20 History sertraline 50 mg PO DAILY 05/09/20 05/09/20 History Past Med/Surg History Medical History (Updated 05/09/20 @ 20:18 by Stalin Price MD) FH: mastectomy (03/07/20) Malignant neoplasm of upper-outer quadrant of right breast in female, estrogen receptor positive (01/12/20) Morbid obesity Surgical History (Updated 05/09/20 @ 20:11 by Stalin Price MD) Gastric bypass status for obesity H/O right mastectomy Status post vaginal hysterectomy (~10/2016) Family History Grandfather (Maternal) Lung cancer Unknown Stomach cancer Unknown Ovarian cancer Social History Smoking Status: Never smoker Second Hand Exposure: Yes; Hx Alcohol Use: Yes Alcohol type: wine Alcohol Intake Frequency: Monthly or Less Hx Substance Use: No Preferred Language: Vietnamese Communication Ability: Effective Hearing Ability: Hard of Hearing Sound Cutter Required: No Beliefs That Will Affect Care: None marital status: marital status details: 25 years Current Living Situation: Spouse and Family Current Living Situation Comment: youngest daughter lives with patient and current occupational status: employed current occupation: on FMLA from [employer] How many Children do You have: 1 How many Children do You have Comment: 1 daughter, 2 stepdaughters Feels Safe at Home: Yes Childhood Exposure to Second-Hand Smoke: Yes caffeine: Yes (coffee and soda) during the past year weight has: remained stable Dental Care, Regularly: No Physical Activity Frequency: 1-2 Times per Week Physical Activity Frequency Comment: walks Seatbelt Use: sometimes Sunscreen Use: Yes Assistive Devices: Glasses Review of Systems Review of Systems: All systems reviewed & are unremarkable except as noted in HPI & below Constitutional: no fever and no chills Eyes: no problem reported Ear, Nose, Mouth, Throat: no problem reported Respiratory: + dyspnea and + pain on inspiration; no cough Cardiovascular: + chest pain and + palpitations; no edema Gastrointestinal: no abdominal pain, no nausea and no vomiting Genitourinary: no dysuria Musculoskeletal: no problem reported Integumentary: no problem reported Neurologic: no problem reported Psychiatric: no problem reported Endocrine: no problem reported Hematologic / Lymphatic: no problem reported Allergy / Immunological: no problem reported Physical Exam Physical Exam: obese female sitting up in the bed, on 2L of supp. O2, pleasant, anxious Constitutional: WD/WN, vitals as above + obese anxious Eyes: PERRL, conjunctivae normal, anicteric sclerae ENMT: external ear and nose normal, oropharynx normal Neck: trachea midline, no thyromegaly normal visual inspection and + thick neck Respiratory: normal respiratory effort, lungs clear to auscultation no respiratory distress, no labored breathing and does not use accessory muscles Auscultation: no crackles, no rales, no rhonchi and no wheezes Cardiovascular: Rate/Rhythm: + tachycardic Heart Sounds: no murmur Chest (Breasts): Chest: normal inspection of chest Additional Comments: left upper chest port Gastrointestinal (Abdomen): Inspection/Auscultation: normal bowel sounds; no abdominal edema Percussion/Palpation: abdomen soft; abdomen nontender, no guarding and abdomen not rigid obese Musculoskeletal: no cyanosis or clubbing, extremities motor strength 5/5 Head/Neck/Chest: normocephalic and head atraumatic Skin: no rashes, warm and dry Neurologic: PERRL, EOMI, accommodation nl, no face palsy, no dysarthria moves all extremities Psychiatric: Orientation: alert and oriented x 3 somewhat anxious/ teary Genitourinary: no CVA tenderness Lymphatic: no lymphedema Results & Data Results & Data ([facility]) Vital Signs (Past 12 Hours) Vital Signs Temp Pulse Resp BP Pulse Ox 05/09/20 18:34 111 H 20 05/09/20 18:32 157/112 H 96 05/09/20 18:00 101 H 17 96 05/09/20 17:30 109 H 17 96 05/09/20 17:00 102 H 17 96 05/09/20 16:30 109 H 17 96 05/09/20 16:01 109 H 17 96 05/09/20 15:40 112 H 19 98 05/09/20 15:30 111 H 22 94 05/09/20 14:45 93 05/09/20 14:40 36.3 C L 124 H 27 H 93 Laboratory Results 05/09/20 05/09/20 05/09/20 Range/Units Unknown 15:36 15:29 WBC (4.8-10.8) K/uL RBC (4.2-5.4) M/uL Hgb (12.0-16.0) g/dL POC Hgb 12.9 (12.0-16.0) g/dl Hct (37-47) % POC Hct 38 (37-47) % MCV (80-100) fL MCH (25-34) pg MCHC (32-36) g/dL RDW Std Deviation (36.4-46.3) fL RDW Coeff of Jake (11.5-14.5) % Plt Count (130-400) K/uL MPV (7.4-10.4) fL Absolute Nucleated RBC (0-0) K/uL Nucleated RBC % (auto) % Neutrophils % (Manual) % Lymphocytes % (Manual) % Monocytes % (Manual) % Eosinophils % (Manual) % Basophils % (Manual) % Metamyelocytes % (Man) % Myelocytes % (Man) % Neutrophils # (Manual) (1.4-6.5) K/uL Total Absolute Neuts (1.4-6.5) K/uL Lymphocytes # (Manual) (1.2-3.4) K/uL Total Abs Lymphocytes (1.2-3.4) K/uL Monocytes # (Manual) (0.11-0.59) K/uL Eosinophils # (Manual) (0-0.5) K/uL Basophils # (Manual) (0-0.2) K/uL Metamyelocytes # (Man) (0-0) K/uL Myelocytes # (Manual) (0-0) K/uL PT (9.0-12.0) Seconds INR (0.9-1.1) APTT (21.0-31.0) Seconds PTT Ratio POC Sodium 142 (135-144) mmol/L Sodium 142 (136-145) mmol/L POC Potassium 3.7 (3.3-5.0) mmol/L Potassium 3.7 (3.5-5.1) mmol/L POC Chloride 105 (101-112) mmol/L Chloride 109 H (98-107) mmol/L Carbon Dioxide 29 (21-32) mmol/L POC Total CO2 26 (24-31) mmol/L Anion Gap 4.0 (3-11) POC Anion Gap 16.0 (16-25) mmol/L POC BUN 8 (7-18) mg/dl BUN 8 (7-18) mg/dl Creatinine 0.65 (0.6-1.2) mg/dl POC Creatinine 0.5 L (0.6-1.3) mg/dl Est Cr Clr Drug Dosing 128.5 ml/min Est GFR ( Amer) 120.8 Est GFR (Non-Af Amer) 104.3 BUN/Creatinine Ratio 12.1 (10-20) Glucose 110 H (70-99) mg/dl POC Glucose (other) 115 H (70-99) mg/dl Calcium 9.4 (8.5-10.1) mg/dl POC Ioniz Calcium Lin 1.18 (1.12-1.32) mmol/l Total Bilirubin 0.4 (0.2-1) mg/dl AST 44 H (15-37) U/L ALT 54 (12-78) U/L Alkaline Phosphatase 152 H (45-117) U/L Troponin I 0.227 H* (0-0.045) ng/ml Total Protein 7.5 (6.4-8.2) gm/dl Albumin 3.7 (3.4-5.0) gm/dl Globulin 3.8 (2.5-4.0) gm/dl Albumin/Globulin Ratio 1.0 (0.9-2) Lipase 115 (73-393) U/L SARS-CoV-2 Ag (Rapid) Negative (Negative) 05/09/20 05/09/20 Range/Units 15:29 15:29 WBC 9.57 (4.8-10.8) K/uL RBC 4.71 (4.2-5.4) M/uL Hgb 13.0 (12.0-16.0) g/dL POC Hgb (12.0-16.0) g/dl Hct 40.0 (37-47) % POC Hct (37-47) % MCV 84.9 (80-100) fL MCH 27.6 (25-34) pg MCHC 32.5 (32-36) g/dL RDW Std Deviation 45.5 (36.4-46.3) fL RDW Coeff of Jake 15.5 H (11.5-14.5) % Plt Count 193 (130-400) K/uL MPV 9.7 (7.4-10.4) fL Absolute Nucleated RBC 0.08 H (0-0) K/uL Nucleated RBC % (auto) 0.8 % Neutrophils % (Manual) 62.4 % Lymphocytes % (Manual) 17.5 % Monocytes % (Manual) 7.0 % Eosinophils % (Manual) 3.5 % Basophils % (Manual) 2.6 % Metamyelocytes % (Man) 4.4 % Myelocytes % (Man) 2.6 % Neutrophils # (Manual) 5.97 (1.4-6.5) K/uL Total Absolute Neuts 5.97 (1.4-6.5) K/uL Lymphocytes # (Manual) 1.67 (1.2-3.4) K/uL Total Abs Lymphocytes 1.67 (1.2-3.4) K/uL Monocytes # (Manual) 0.67 H (0.11-0.59) K/uL Eosinophils # (Manual) 0.33 (0-0.5) K/uL Basophils # (Manual) 0.25 H (0-0.2) K/uL Metamyelocytes # (Man) 0.42 H (0-0) K/uL Myelocytes # (Manual) 0.25 H (0-0) K/uL PT 11.0 (9.0-12.0) Seconds INR 1.0 (0.9-1.1) APTT 24.9 (21.0-31.0) Seconds PTT Ratio 0.9 POC Sodium (135-144) mmol/L Sodium (136-145) mmol/L POC Potassium (3.3-5.0) mmol/L Potassium (3.5-5.1) mmol/L POC Chloride (101-112) mmol/L Chloride (98-107) mmol/L Carbon Dioxide (21-32) mmol/L POC Total CO2 (24-31) mmol/L Anion Gap (3-11) POC Anion Gap (16-25) mmol/L POC BUN (7-18) mg/dl BUN (7-18) mg/dl Creatinine (0.6-1.2) mg/dl POC Creatinine (0.6-1.3) mg/dl Est Cr Clr Drug Dosing ml/min Est GFR ( Amer) Est GFR (Non-Af Amer) BUN/Creatinine Ratio (10-20) Glucose (70-99) mg/dl POC Glucose (other) (70-99) mg/dl Calcium (8.5-10.1) mg/dl POC Ioniz Calcium Lin (1.12-1.32) mmol/l Total Bilirubin (0.2-1) mg/dl AST (15-37) U/L ALT (12-78) U/L Alkaline Phosphatase (45-117) U/L Troponin I (0-0.045) ng/ml Total Protein (6.4-8.2) gm/dl Albumin (3.4-5.0) gm/dl Globulin (2.5-4.0) gm/dl Albumin/Globulin Ratio (0.9-2) Lipase (73-393) U/L SARS-CoV-2 Ag (Rapid) (Negative) Diagnostic Findings CTA IMPRESSION: 1. Acute bilateral pulmonary embolism. 2. Extravasated contrast within the left breast. CXR IMPRESSION: 1. There is a moderate volume of extravasated contrast surrounding the left- sided A-Port catheter 2. Otherwise no active disease in the chest. Code Status & VTE Plan VTE Prophylaxis Plan VTE Prophylaxis will be ordered: Yes (1) Pulmonary embolism Acute cor pulmonale presence: with acute cor pulmonale Chronicity: acute Pulmonary embolism type: unspecified Qualified Code(s): I26.09 - Other pulmonary embolism with acute cor pulmonale (2) Chest pain Chest pain type: unspecified Qualified Code(s): R07.9 - Chest pain, unspecifi ed
[2020-05-09] MEDS ORDERED: oxyCODONE/ACETAMINOPHEN 5mg/325mg TAB PO PRN (21:13)
[2020-05-09] MEDS ORDERED: LIDOCAINE 5% 1 PATCH TD SCH (21:15)
[2020-05-09] MEDS: ACETAMINOPHEN 325 MG TAB PO PRN (22:12)
[2020-05-09] MEDS: LORazepam 0.5 MG TAB PO SCH (22:12)
[2020-05-09] MEDS ORDERED: LIDOCAINE 2% JELLY 5 ML TUBE EXT PRN (22:54)
[2020-05-09] MEDS: Heparin IV Adult Wt-Based Standard WITH Bolus Protocol IV SCH ×4 (22:56→23:52)
[2020-05-10] MEDS ORDERED: HEPARIN 100 UNIT/ML 5ML FLUSH FLUSH PRN (00:34)
[2020-05-10 01:21] LABS: Partial Thromboplastin Ratio 1.6
[2020-05-10 08:01] LABS: Partial Thromboplastin Ratio 1.6; Partial Thromboplastin Time 44.9 Seconds (21.0-31.0)
[2020-05-10 08:13] LABS: Albumin Level 3.2 gm/dl (3.4-5.0); Creatinine Clr Calc Pharmacy 127.7 ml/min; Est GFR (African American) 120.2; Est GFR (Non-African American) 103.7; Magnesium 2.2 mg/dl (1.8-2.4); Potassium 3.6 mmol/L (3.5-5.1)
[2020-05-10 08:16] LABS: Bilirubin,Total 0.4 mg/dl (0.2-1); Globulin 3.2 gm/dl (2.5-4.0); Total Protein 6.4 gm/dl (6.4-8.2)
[2020-05-10] MEDS: SERTRALINE HCL 50 MG TABLET PO SCH (08:40)
[2020-05-10] MEDS: LIDOCAINE 5% 1 PATCH TD SCH (08:40)
[2020-05-10] MEDS: HEPARIN SODIUM/DEXTROSE 25,000 UNITS/500 ML BAG IV SCH (10:26)
[2020-05-10] MEDS: ACETAMINOPHEN 325 MG TAB PO PRN (11:33)
[2020-05-10 15:00] LABS: Partial Thromboplastin Ratio 1.3; Partial Thromboplastin Time 37.3 Seconds (21.0-31.0)
[2020-05-10] MEDS ORDERED: HEPARIN IV BOLUS 3,000 UNITS in SYRINGE 0 ML IV ONE (15:15)
--- NOTE | 2020-05-10 16:11 | Hospitalist Progress Note ---
Date of Service May 10, 2020 Assessment & Plan (1) Acute respiratory failure with hypoxia: (2) Pulmonary embolism: (3) Chest pain: Acute respiratory failure with hypoxia Acute bilateral pulmonary medicine Right heart strain secondary to PE--dilated RV on outpatient ECHO Hypercoagulability likely secondary to malignancy. -CTA: Acute bilateral pulmonary embolism. Extravasated contrast within the left breast. Small pericardial effusion. -Minimal Troponin elevation -Continue IV heparin for now -Continue supplemental oxygen to maintain saturations -Started on Coumadin given H/O Gastric Bypass- Avoid DOACs due to absorbption issues -Monitor INR (4) Morbid obesity: BMI 48 H/O Gastric bypass (5) Malignant neoplasm of upper-outer quadrant of right breast in female, estrogen receptor positive: S/p mastectomy w/ Dr. Ibanez (03/2020) Ongoing chemotherapy Follows w/ Dr. Bonilla DVT Px: IV heparin, Coumadin Code Status: Full Code Disposition Expect to discharge home when stable Admission and Anticipated Discharge Date Admission Date: May 09, 2020 Subjective Patient is seen and examined at bedside Pleuritic chest discomfort improving Has minimal dyspnea on exertion Reports having intermittent nosebleeds since 1 week duration Denies any other bleeding issues Offers no other complaints Review of Systems Review of Systems: All systems reviewed & are unremarkable except as noted in HPI & below Physical Exam Physical Exam: Physical Exam: Vitals signs as noted above General Appearance:Morbidly obese, no apparent distress Head: normocephalic, Atraumatic Eyes: normal inspection, EOMI Neck: supple, Trachea midline Respiratory/Chest: Normal breath sounds, CTA, +Chemo port + R Mastectomy Cardiovascular: S1, S2, No murmur Abdomen/GI:Soft, Non tender, Bowel sounds present Extremities/Musculoskelatal:normal inspection, Trace pedal edema Neurologic/Psych:AAOX3, grossly no focal neurological deficits Skin: normal color, warm Results & Data Results & Data ([facility]) Vital Signs (Past 12 Hours) Vital Signs Temp Pulse Resp BP Pulse Ox 05/10/20 14:35 37.2 C 99 H 18 107/76 98 05/10/20 11:35 36.7 C 97 H 22 118/77 97 05/10/20 07:00 36.6 C 96 H 18 109/80 97 Laboratory Results BMP 05/09/20 05/10/20 15:29 07:38 Sodium 142 143 Potassium 3.7 3.6 Chloride 109 H 109 H Carbon Dioxide 29 28 BUN 8 10 Creatinine 0.65 0.66 Glucose 110 H 119 H Calcium 9.4 9.0 Cardiac Enzymes 05/09/20 05/10/20 Range/Units 15:29 07:38 Troponin I 0.227 H* 0.098 H* (0-0.045) ng/ml Liver Function 05/09/20 05/10/20 Range/Units 15:29 07:38 Total Bilirubin 0.4 0.4 (0.2-1) mg/dl AST 44 H 40 H (15-37) U/L ALT 54 47 (12-78) U/L Alkaline Phosphatase 152 H 121 H (45-117) U/L Albumin 3.7 3.2 L (3.4-5.0) gm/dl (1) Pulmonary embolism Acute cor pulmonale presence: with acute cor pulmonale Chronicity: acute Pulmonary embolism type: unspecified Qualified Code(s): I26.09 - Other pulmonary embolism with acute cor pulmonale (2) Chest pain Chest pain type: unspecified Qualified Code(s): R07.9 - Chest pain, unspecified
[2020-05-10] MEDS ORDERED: WARFARIN SOD 7.5 MG TAB PO SCH (16:30)
[2020-05-10] MEDS: LORazepam 0.5 MG TAB PO SCH (21:59)
[2020-05-10 22:27] LABS: Partial Thromboplastin Time 55.7 Seconds (21.0-31.0)
[2020-05-11] MEDS: HEPARIN SODIUM/DEXTROSE 25,000 UNITS/500 ML BAG IV SCH ×2 (00:53→14:30)
[2020-05-11] MEDS: Heparin IV Adult Wt-Based Standard WITH Bolus Protocol IV SCH ×2 (07:19→07:20)
[2020-05-11 07:47] LABS: Hematocrit (blood only) 35.6 % (37-47); Hemoglobin 11.5 g/dL (12.0-16.0); Mean Corpuscular Hemoglobin 27.3 pg (25-34); Mean Corpuscular Hgb Conc 32.3 g/dL (32-36); Mean Corpuscular Volume 84.6 fL (80-100); Mean Platelet Volume 9.4 fL (7.4-10.4); Nucleated RBC # (auto) 0.04 K/uL (0-0); Nucleated RBC % (auto) 0.4 %; Platelet Count 181 K/uL (130-400); RDW Coefficient of Variation 15.9 % (11.5-14.5); RDW Standard Deviation 46.3 fL (36.4-46.3); Red Blood Count 4.21 M/uL (4.2-5.4); White Blood Count 9.38 K/uL (4.8-10.8)
[2020-05-11] MEDS: SERTRALINE HCL 50 MG TABLET PO SCH (08:04)
[2020-05-11] MEDS: ACETAMINOPHEN 325 MG TAB PO PRN (08:04)
[2020-05-11] MEDS: LIDOCAINE 5% 1 PATCH TD SCH (08:06)
[2020-05-11 08:07] LABS: ALC (manual) 1.22 K/uL (1.2-3.4); ANC (manual) 7.51 K/uL (1.4-6.5); Basophils # (manual) 0.08 K/uL (0-0.2); Basophils % (manual) 0.9 %; Eosinophils # (manual) 0.16 K/uL (0-0.5); Eosinophils % (manual) 1.7 %; Lymphocytes # (manual) 1.22 K/uL (1.2-3.4); Metamyelocytes # (manual) 0.16 K/uL (0-0); Metamyelocytes % (manual) 1.7 %; Monocytes # (manual) 0.24 K/uL (0.11-0.59); Monocytes % (manual) 2.6 %; Neutrophils # (manual) 7.51 K/uL (1.4-6.5); Neutrophils % (manual) 80.1 %
[2020-05-11 08:09] LABS: INR 1.1 (0.9-1.1); Prothrombin Time 11.6 Seconds (9.0-12.0)
[2020-05-11 08:14] LABS: Partial Thromboplastin Time 56.6 Seconds (21.0-31.0)
[2020-05-11 08:24] LABS: Albumin Level 3.3 gm/dl (3.4-5.0); BUN Creatinine Ratio 11.8 (10-20); Calcium 9.7 mg/dl (8.5-10.1); Creatinine Clr Calc Pharmacy 153.3 ml/min; Est GFR (African American) 127.7; Est GFR (Non-African American) 110.1; Magnesium 2.2 mg/dl (1.8-2.4); Potassium 3.3 mmol/L (3.5-5.1)
[2020-05-11 08:29] LABS: Bilirubin,Total 0.4 mg/dl (0.2-1); Globulin 3.3 gm/dl (2.5-4.0); Total Protein 6.6 gm/dl (6.4-8.2); Troponin I 0.027 ng/ml (0-0.045)
--- NOTE | 2020-05-11 12:37 | Hospitalist Progress Note ---
Date of Service May 11, 2020 Assessment & Plan (1) Pulmonary embolism: History of breast cancer undergoing treatment. Presented with dyspnea. CTA demonstrated bilateral pulmonary emboli. Venous duplex pending. Troponin 0.227>0.098>0.027. Echo performed in clinic on 05/09/20 showed moderate to severe dilation of RV and reduced RV sys function. Estimated PA sys pressure was 56. Echo findings new compared to study performed on 04/03/20. Not good candidate for DOAC due to wt/BMI and gastric bypass status. Started on IV heparin. ? best outpatient management- will discuss plan with Heme/Onc. (2) Right ventricular enlargement: Secondary to pulmonary emboli. Will need f/u echo in about 6 months. Maintain adequate oxygenation, including nocturnal. (3) Elevated troponin level: Troponin 0.227>0.098>0.027. Troponin elevation probably secondary to PE's. (4) Abnormal CT scan, chest: CTA chest performed via subcutaneous vascular access device. Extravasation of dye was noted. Will ask General Surgery to review images. (5) Hypokalemia: K today = 3.3. Replace. Follow. (6) Malignant neoplasm of upper-outer quadrant of right breast in female, estrogen receptor positive: Management per Heme/Onc. (7) Discharge planning issues: Anticipated discharge to home. Family Medicine follow-up with Dr. Lemons. Hematology / Medical Oncology follow-up with Dr. Bonilla. Admission and Anticipated Discharge Date Admission Date: May 09, 2020 Subjective Recheck for pulmonary emboli. Patient seen in their room around 1110. Feels better. Less SOB. No cough or CP. No abnormal bleeding or bruising. Review of Systems: Constitutional- no fever. Cardiac- as noted above. Pulmonary- as noted above. GI- no nausea, vomiting, diarrhea, melena, hematochezia. - no hematuria or other urinary symptoms. Otherwise, as noted above. Physical Exam Constitutional: no acute distress Eyes: + anicteric sclerae Respiratory: normal respiratory effort, lungs clear to auscultation Cardiovascular: Rate/Rhythm: regular rate and regular rhythm Vessels: no JVD Extremities: no calf tenderness and no edema Chest (Breasts): Additional Comments: vascular access port left upper chest without overlying erythema or tenderness Gastrointestinal (Abdomen): normal bowel sounds, soft, nontender, no hepatosplenomegaly Musculoskeletal: Extremities: no cyanosis Skin: no rashes, warm and dry Psychiatric: Orientation: alert and oriented x 3 Results & Data Results & Data ([facility]) Vital Signs (Past 12 Hours) Vital Signs Temp Pulse Pulse Resp BP Pulse Ox 05/11/20 10:56 36.8 C 87 18 107/75 95 05/11/20 07:37 36.8 C 95 H 18 120/84 97 05/11/20 07:17 89 05/11/20 02:57 36.6 C 95 H 20 114/87 97 Laboratory Results Laboratory Results - last 24 hr 05/10/20 05/10/20 05/11/20 14:35 21:33 07:28 WBC RBC Hgb Hct MCV MCH MCHC RDW Std Deviation RDW Coeff of Jake Plt Count MPV Absolute Nucleated RBC Nucleated RBC % (auto) Neutrophils % (Manual) Lymphocytes % (Manual) Monocytes % (Manual) Eosinophils % (Manual) Basophils % (Manual) Metamyelocytes % (Man) Neutrophils # (Manual) Total Absolute Neuts Lymphocytes # (Manual) Total Abs Lymphocytes Monocytes # (Manual) Eosinophils # (Manual) Basophils # (Manual) Metamyelocytes # (Man) PT INR APTT 37.3 H 55.7 H* PTT Ratio 1.3 2.0 Sodium 142 Potassium 3.3 L Chloride 108 H Carbon Dioxide 25 Anion Gap 9.0 BUN 7 Creatinine 0.55 L Est Cr Clr Drug Dosing 153.3 Est GFR ( Amer) 127.7 Est GFR (Non-Af Amer) 110.1 BUN/Creatinine Ratio 11.8 Glucose 126 H Calcium 9.7 Magnesium 2.2 Total Bilirubin 0.4 AST 41 H ALT 48 Alkaline Phosphatase 112 Troponin I 0.027 Total Protein 6.6 Albumin 3.3 L Globulin 3.3 Albumin/Globulin Ratio 1.0 05/11/20 05/11/20 07:28 07:28 WBC 9.38 RBC 4.21 Hgb 11.5 L Hct 35.6 L MCV 84.6 MCH 27.3 MCHC 32.3 RDW Std Deviation 46.3 RDW Coeff of Jake 15.9 H Plt Count 181 MPV 9.4 Absolute Nucleated RBC 0.04 H Nucleated RBC % (auto) 0.4 Neutrophils % (Manual) 80.1 Lymphocytes % (Manual) 13.0 Monocytes % (Manual) 2.6 Eosinophils % (Manual) 1.7 Basophils % (Manual) 0.9 Metamyelocytes % (Man) 1.7 Neutrophils # (Manual) 7.51 H Total Absolute Neuts 7.51 H Lymphocytes # (Manual) 1.22 Total Abs Lymphocytes 1.22 Monocytes # (Manual) 0.24 Eosinophils # (Manual) 0.16 Basophils # (Manual) 0.08 Metamyelocytes # (Man) 0.16 H PT 11.6 INR 1.1 APTT 56.6 H* PTT Ratio 2.0 Sodium Potassium Chloride Carbon Dioxide Anion Gap BUN Creatinine Est Cr Clr Drug Dosing Est GFR ( Amer) Est GFR (Non-Af Amer) BUN/Creatinine Ratio Glucose Calcium Magnesium Total Bilirubin AST ALT Alkaline Phosphatase Troponin I Total Protein Albumin Globulin Albumin/Globulin Ratio (1) Pulmonary embolism Acute cor pulmonale presence: with acute cor pulmonale Chronicity: acute Pulmonary embolism type: unspecified Qualified Code(s): I26.09 - Other pul monary embolism with acute cor pulmonale
[2020-05-11] MEDS ORDERED: POTASSIUM CHLORIDE CRTAB 20 MEQ TABCR PO ONE (12:46)
--- NOTE | 2020-05-11 14:27 | Ultrasound Report ---
BILATERAL LOWER EXTREMITY VENOUS DOPPLER HISTORY: Evaluate for DVT. pulmonary emboli COMPARISON STUDY: None. FINDINGS: Near occlusive bilateral popliteal vein thrombosis. There is also partially thrombosed one of 2 right posterior tibial veins. Intermittent flow within the right peroneal veins may also represe nt areas of thrombus. The bilateral common femoral and superficial femoral veins are patent. IMPRESSION: Bilateral lower extremity DVT as described above. ACT 112: Negative or not required by law. Electronically signed by: Lasha Shrestha M.D. 05/11/2020 2:26 PM
[2020-05-11] MEDS ORDERED: WARFARIN SOD 10 MG TAB PO SCH (16:00)
[2020-05-11] MEDS: ENOXAPARIN INJ 120 MG/0.8 ML SYR SQ SCH (21:17)
[2020-05-11] MEDS: LORazepam 0.5 MG TAB PO SCH (22:04)
--- NOTE | 2020-05-12 06:46 | Electrocardiogram Report ---
Test Reason : Blood Pressure : / mmHG Vent. Rate : 097 BPM Atrial Rate : 097 BPM P-R Int : 158 ms QRS Dur : 084 ms QT Int : 388 ms P-R-T Axes : 044 054 059 degrees QTc Int : 493 ms Normal sinus rhythm Anteroseptal infarct (cited on or before 11-MAY-2020) T wave abnormality, consider anterior ischemia Prolonged QT Abnormal ECG When compared with ECG of 09-MAY-2020 14:49, Criteria for Inferior infarct are no longer Present Questionable change in initial forces of Anteroseptal leads T wave inversion less evident in Anterior leads Confirmed by Karlos Garcia ([id number]) on 05/12/2020 6:46:28 AM Referred By: REFERRED SELF Confirmed By:Karlos Garcia
[2020-05-12 07:14] LABS: INR 1.6 (0.9-1.1); Partial Thromboplastin Ratio 1.2; Partial Thromboplastin Time 33.6 Seconds (21.0-31.0); Prothrombin Time 16.5 Seconds (9.0-12.0)
[2020-05-12 07:27] LABS: BUN Creatinine Ratio 17.5 (10-20); Calcium 9.2 mg/dl (8.5-10.1); Creatinine Clr Calc Pharmacy 165.7 ml/min; Est GFR (African American) 130.9; Est GFR (Non-African American) 112.9; Potassium 3.8 mmol/L (3.5-5.1)
[2020-05-12] MEDS: LIDOCAINE 5% 1 PATCH TD SCH (08:23)
[2020-05-12] MEDS: SERTRALINE HCL 50 MG TABLET PO SCH (08:23)
[2020-05-12] MEDS: ENOXAPARIN INJ 120 MG/0.8 ML SYR SQ SCH (09:33)
--- NOTE | 2020-05-12 11:30 | Hospitalist Progress Note ---
Date of Service May 12, 2020 Assessment & Plan (1) Pulmonary embolism: History of breast cancer undergoing treatment. Presented with dyspnea. CTA demonstrated bilateral pulmonary emboli. (present on admission) Venous duplex demonstrated bilateral DVT's involving popliteal and calf veins, but nothing more proximal. (present on admission) Troponin 0.227>0.098>0.027. Echo performed in clinic on 05/09/20 showed moderate to severe dilation of RV and reduced RV sys function. Estimated PA sys pressure was 56. Echo findings new compared to study performed on 04/03/20. Not good candidate for DOAC due to wt/BMI and gastric bypass status. Started on IV heparin and transitioned to SQ enoxaparin. Heme / Onc recommended outpatient Rx with warfarin. Received warfarin 7.5 mg on 05/10 and 10 mg on 05/11. INR today = 1.6. Discharge on warfarin 5 mg daily. Continue enoxaparin 120 mg q 12 hrs for at least 5 days and until INR therapeutic for at least 2 days. Referred to [facility] for anticoagulation management. Duration of anticoagulation per Heme / Onc. Patient reports that both parents had DVT's. Further evaluation per Heme / Onc. (2) Hypoxia: No documented hypoxia at rest. Nocturnal pulse oximetry night of 05/11 revealed O2 sats as low as 72% with 306 desaturation events (total duration 1 hour and 38 minutes). 2 step pulse oximetry today demonstrated O2 sat 94% at rest / 86% with exercise. PE, possible sleep apnea, possible obesity hypoventilation syndrome could all be contributing to hypoxia. Discharged on O2 2 LPM by NC at rest and with exercise. Outpatient sleep study recommended. (3) Right ventricular enlargement: Secondary to pulmonary emboli. Will need f/u echo in about 6 months. Maintain adequate oxygenation, including nocturnal. Consider sleep apnea with pulmonary hypertension and RV strain. Outpatient sleep study recommended. (4) Elevated troponin level: Troponin 0.227>0.098>0.027. Troponin elevation probably secondary to PE's. (5) Abnormal CT scan, chest: CTA chest performed via subcutaneous vascular access device. Extravasation of dye was noted. Needle placement issue vs leaking port? Asked General Surgery to review images. They recommend follow-up chest x-ray as outpatient. Once dye is absorbed, patient should have port study. Port should not be used until leak ruled out. (6) Hypokalemia: K as low as 3.3. Replaced. K today = 3.8. Follow. (7) Malignant neoplasm of upper-outer quadrant of right breast in female, estrogen receptor positive: Management per Heme/Onc. (8) Discharge planning issues: Discharge to home. Family Medicine follow-up with Dr. Lemons. Hematology / Medical Oncology follow-up with Dr. Bonilla. General Surgery follow-up with Dr. Ibanez as needed. Anticoagulation management per [facility] Admission and Anticipated Discharge Date Admission Date: May 09, 2020 Subjective Recheck for pulmonary emboli. Patient seen in their room around 1030. Feels better. Less SOB; has mild dyspnea with exertion. No cough or CP. No abnormal bleeding or bruising. Anxious to go home. Patient and received training regarding SQ administration of enoxaparin. Physical Exam Constitutional: no acute distress Eyes: + anicteric sclerae Respiratory: normal respiratory effort, lungs clear to auscultation Cardiovascular: Rate/Rhythm: regular rate and regular rhythm Vessels: no JVD Extremities: + edema (trace pretibial); no calf tenderness Gastrointestinal (Abdomen): normal bowel sounds, soft, nontender, no hepatosplenomegaly Musculoskeletal: Extremities: no cyanosis Skin: no rashes, warm and dry Psychiatric: Orientation: alert and oriented x 3 Results & Data Results & Data ([facility]) Vital Signs (Past 12 Hours) Vital Signs Temp Pulse Pulse Pulse Pulse Pulse Pulse 05/12/20 10:29 37.0 C 102 H 05/12/20 09:16 115 H 121 H 121 H 98 H 05/12/20 08:06 37.0 C 102 H 05/12/20 07:39 93 H 05/12/20 04:54 36.9 C 98 H 05/12/20 02:11 94 H (1) Pulmonary embolism Acute cor pulmonale presence: with acute cor pulmonale Chronicity: acute Pulmonary embolism type: unspecified Qualified Code(s): I26.09 - Other pulmonary embolism with acute cor pulmonale
--- NOTE | 2020-05-13 01:38 | Discharge Summary ---
Date of Service Date of Admission: 05/09/20 Date of Discharge: 05/12/20 Admission HPI Per Admitting Provider Mrs. Lu is a 50 y/o F with recent dg. of breast ca ER/IN positive, HER-2 negative, s/p right mastectomy w/ Dr. Ibanez (03/07/2020) and started chemotherapy with Dr. Bonilla (pt reports having chemo treatment 2 weeks ago), iron def. anemia, obesity s/p gastric bypass surgery, who now presents with progressive shortness of breath of past 3 days and left posterior chest pain, found to have b/l PE with R heart strain and dilated RV. Pt was seeing her oncologist to receive chemotherapy but because of her symptoms of shortness of breath she was sent for echocardiogram. Echo was obtained and Dr. Ngo noted R heart strain and dilated RV and recommended further evaluation and treatment in inpt. setting. In the ED pt underwent CTA which confirmed b/l PE. She was started on IV heparin, currently requiring 2 L of suppl. O2. She is able to speak in full sentences. Denies any LE edema or pain. Reports left posterior chest pain. Principal Diagnosis acute bilateral emboli (present on admission) acute deep venous thromboses bilateral lower extremities (present on admission) right ventricular strain hypoxia (nocturnal and with exercise) OTHER ACUTE / SECONDARY DIAGNOSES: possible leak vascular access device hypokalemia Discharge Data Allergies Allergy/AdvReac Type Severity Reaction Status Date / Time No Known Allergies Allergy Unverified 05/09/20 19:30 Consultations 05/09/20 18:28 ED Decision to Admit Stat 05/11/20 08:00 Consult General Surgery Routine Ordered Studies 05/09/20 15:02 CT angio chest PE protocol Stat 05/11/20 14:00 US venous doppler LE BI Routine Hospital Course (1) Pulmonary embolism: History of breast cancer undergoing treatment. Presented with dyspnea. CTA demonstrated bilateral pulmonary emboli. (present on admission) Venous duplex demonstrated bilateral DVT's involving popliteal and calf veins, but nothing more proximal. (present on admission) Troponin 0.227>0.098>0.027. Echo performed in clinic on 05/09/20 showed moderate to severe dilation of RV and reduced RV sys function. Estimated PA sys pressure was 56. Echo findings new compared to study performed on 04/03/20. Not good candidate for DOAC due to wt/BMI and gastric bypass status. Started on IV heparin and transitioned to SQ enoxaparin. Heme / Onc recommended outpatient Rx with warfarin. Received warfarin 7.5 mg on 05/10 and 10 mg on 05/11. INR day of discharge = 1.6. Discharge on warfarin 5 mg daily. Continue enoxaparin 120 mg q 12 hrs for at least 5 days and until INR therapeutic for at least 2 days. Referred to [facility] for anticoagulation management. Duration of anticoagulation per Heme / Onc. Patient reports that both parents had DVT's. Further evaluation per Heme / Onc. (2) Hypoxia: No documented hypoxia at rest. Nocturnal pulse oximetry night of 05/11 revealed O2 sats as low as 72% with 306 desaturation events (total duration 1 hour and 38 minutes). 2 step pulse oximetry today demonstrated O2 sat 94% at rest / 86% with exercise. PE, possible sleep apnea, possible obesity hypoventilation syndrome could all be contributing to hypoxia. Discharged on O2 2 LPM by NC at rest and with exercise. Outpatient sleep study recommended. (3) Right ventricular enlargement: Secondary to pulmonary emboli. Will need f/u echo in about 6 months. Maintain adequate oxygenation, including nocturnal. Consider sleep apnea with pulmonary hypertension and RV strain. Outpatient sleep study recommended. (4) Elevated troponin level: Troponin 0.227>0.098>0.027. Troponin elevation probably secondary to PE's. (5) Abnormal CT scan, chest: CTA chest performed via subcutaneous vascular access device. Extravasation of dye was noted. Needle placement issue vs leaking port? Asked General Surgery to review images. They recommend follow-up chest x-ray as outpatient. Once dye is absorbed, patient should have port study. Port should not be used until leak ruled out. (6) Hypokalemia: K as low as 3.3. Replaced. K day of discharge = 3.8. Follow. (7) Malignant neoplasm of upper-outer quadrant of right breast in female, estrogen receptor positive: Management per Heme/Onc. (8) Discharge planning issues: Discharged to home. Family Medicine follow-up with Dr. Lemons. Hematology / Medical Oncology follow-up with Dr. Bonilla. General Surgery follow-up with Dr. Ibanez as needed. Anticoagulation management per [facility] Total Time Total Time Spent Total Time Spent (In Minutes): 45 Discharge Plan Discharge Items Patient Disposition: Home - Self-Care Reason For Visit: trouble breathing Discharge Diagnosis: pulmonary emboli (blood clots in lungs) DVT's (deep venous thrombosis = blood clots in legs) Condition on Discharge: Good Activity: As commented below Activity Comment: light activity at first, then increase gradually as tolerated Non-emergency contact: Primary Care Provider and Oncologist Call non-emergency contact if: you have any medication questions and your symptoms worsen Follow-up/Referrals: Latrice Lemons DO [Primary Care Provider] - (05/16/2020 11:00 AM Latrice Lemons DO ) Mark Bonilla MD [Hospitalist] - Diet: Regular Diet Comment: consistent diet of foods that contain vitamin K Addtl Attending Provider Instructions: MEDICATION CHANGES: enoxaparin (Lovenox) injection 120 mg twice a day blood thinner for blood clots continue until Anticoagulation Clinic tells you to stop. warfarin (Coumadin) 5 mg tablet initial dose 5 mg daily in the evening acetaminophen 500 mg (Extra Strength Tylenol) 2 pills every 6 hours as needed for moderate pain (use acetaminophen + oxycodone for severe pain) Do not use any aspirin or nonsteroidal anti-inflammatory medications like ibuprofen (Advil or Motrin) or naproxen (Aleve) while taking warfarin. Combination could cause stomach ulcers and bleeding. SUMMARY OF TEST RESULTS: CT scan of chest showed blood clots in lungs. Ultrasound of legs showed blood clots. Echocardiogram showed strain on heart from blood clots. CT scan and x-ray of chest showed CT dye leaking around port. COVID test negative on 05/09/20. RECOMMENDATIONS FOR FOLLOW-UP: Please ask Dr. Lemons to schedule chest x-ray to see if leaking dye has cleared up. Once it does, Dr. Ibanez recommends another x-ray with injected dye to check the port for leak. Please ask Dr. Lemons to schedule repeat echocardiogram in 6 months. You may have sleep apnea. Please ask Dr. Lemons to schedule when convenient. Coordination of blood thinners with [facility]. They will be contacting you. Please ask Dr. Bonilla if you should have testing done for hereditary blood clotting problems. INSTRUCTIONS FOR BLOOD CLOTS & BLOOD THINNERS: Medication Instructions: * Warfarin is a medicine prescribed to prevent blood clots * Warfarin will thin your blood and help prevent new clots * Take your medications exactly as directed * Never skip a dose. Never take a double dose. If you miss a dose, take it as soon as you remember * It is important for your doctor to monitor your prothrombin time (PT). This is a lab test * Keep your appointment for lab tests Risk of Adverse Drug Reactions and Interactions: * Warfarin increases your risk of bleeding * The food you eat and other medications you take can affect how Warfarin works in your body * Ask your doctor about daily aspirin therapy * It is very important to talk with your doctor about all of the other medici yann, antibiotics, vitamins or herbal products that you are taking * All of your medication must be approved by your doctor, including new medicines, as well as medicines you have taken before you started taking Warfarin Diet: * In order for Warfarin to work properly, it is important to keep your intake of Vitamin K as consistent as possible * You should avoid any sudden change in Vitamin K intake * Report any significant changes in your diet or weight to your doctor Call your Primary Care doctor if you experience any of the following: * Swelling or Pain in your leg * Sudden, continuous pain deep in a muscle * Pain that worsens when you are active or when you stand still for a long time * Chest Pain * Sudden Shortness of Breath * Rapid or pounding heart beat * Fainting * Dizziness * Cough with blood or bloody sputum * Sweating more than normal * Bruises * Heavy or uncontrolled bleeding * Blood in your urine, stool or vomit * Black or tarry stools Caring for Your Self at Home: * Avoid sitting, standing or lying down for long periods without moving your legs and feet * When traveling by car, stop to get out and move around at least once every 3 hours * On long airplane, train or bus rides, get up and move around when possible * If you can't get up, wiggle your toes and tighten your calves to keep your blood moving Follow Up: It is important for you to keep your follow up appointments with your medical provider. OTHER INSTRUCTIONS: Oxygen 2 liters / minute while sleeping. Oxygen 2 liters / minute while walking. Seek medical attention if you have: * temperature above 101 * chest pain or trouble breathing * abdominal pain, nausea, vomiting * diarrhea, dark stools or bloody stools * abnormal bruising * any unanswered questions or concerns Call 911 if symptoms are severe. Please take good care of yourself. Call if you have any questions or problems. You can reach a [facility] hospitalist on duty at [facility] 24 hours a day by calling [phone]. My cell # is [phone]. Pending Studies at Discharge: No Stand-Alone Forms: My [facility], Smoking Cessation Medications and DC Order Prescriptions: New enoxaparin [Lovenox] 120 mg/0.8 mL Syringe 120 mg subcut Q12@10,22 Qty: 8 RF: 1 warfarin 5 mg tablet 5 mg PO DAILY Qty: 30 RF: 5 acetaminophen 500 mg tablet 1,000 mg PO Q8H PRN (Reason: fever or pain) Qty: 60 RF: 0 Continued sertraline 50 mg Tablet 50 mg PO DAILY RF: 0 ergocalciferol (vitamin D2) 50,000 unit Tablet 50,000 unit PO WK RF: 0 lidocaine-prilocaine 2.5-2.5 % cream 1 applic topical .PRN/UD PRN (Reason: Pain) RF: 0 lorazepam 0.5 mg tablet 0.5 mg PO HS RF: 0 oxycodone-acetaminophen 5-325 mg tablet 1 tab PO Q4H PRN (Reason: Pain) RF: 0 cyanocobalamin (vitamin B-12) 1,000 mcg/mL solution 1,000 mcg IM MONTHLY RF: 0 ondansetron HCl 8 mg tablet 8 mg PO Q8H PRN (Reason: Nausea) RF: 0 olanzapine 10 mg tablet See Rx Instructions .ROUTE .COMPLEX RF: 0 prochlorperazine maleate 10 mg tablet 10 mg PO Q6H PRN (Reason: Nausea) RF: 0 Discharge Orders: Discharge Order (Routine); Ordered 05/12/20 Ordered By: Memo Mccain/Other Patient Handouts: Pulmonary Embolism, ED Deep Vein Thrombosis (DVT), Warfarin tablets, Enoxaparin injection Admission Data Admit Date/Time: 05/09/20 18:32 Attending Provider: Memo Vásquez Admit Provider: Stalin Price Primary Care Provider: Latrice Lemons Other Providers: Stalin Price ; Shashi Delicd ; Rocio Gracia ; Jennifer Ibanez ; Garry Whiteside ; Ho Estrada ; Carey Calabrese ; Lauren Kimble ; Arben Leblanc Jr ; Adilson Trevino ; Bishop Campbell ; Kezia De Jesus ; Walker Irving Other Interventions: Discharge Summary Assessment (RN) Last Done: 05/12/20 10:29
--- NOTE | 2020-05-17 12:11 | Coding Query ---
To promote full compliance with coding requirements relating to patient care, provider participation is requested in all cases of gopherman uncertainty. Please assist us with the question(s) below: Coding Question(s): The diagnosis below was documented in the H&P and the first Progress Note on 05/10/20, then subsequently fell off all further documentation. Please indicate if it is still a possible diagnosis or ruled out. Physician's Response(s): ACUTE RESPIRATORY FAILURE WITH HYPOXIA (regarding the Acute Respiratory Failure) ( ) Diagnosed and POA ( ) Diagnosed and not POA ( ) Ruled out ( x ) Other (please specify) Did not see any documentation of hypoxia at rest. Patient did have nocturnal hypoxia which may have been acute or chronic. Also had hypoxia with exertion, but don't believe that that would be considered acute resp failure with hypoxia. Thanks. Memo SEARS
== END 2020-05-12 14:15 | disposition home or self-care (01) | DRG 299 ==
LOC: ED 14:38 → SUATTDRO 18:32 → 2S 18:32

== ENCOUNTER 2020-07-18 11:05 | Observation (INO) ==
[2020-07-18] MEDS ORDERED: SODIUM CHLORIDE 0.9% 1000ML 1,000 ML IV ONE (11:31)
[2020-07-18 11:41] LABS: Basophils # (auto) 0.03 K/uL (0-0.2); Basophils % (auto) 0.6 %; Eosinophils # (auto) 0.19 K/uL (0-0.5); Eosinophils % (auto) 3.7 %; Hematocrit (blood only) 34.6 % (37-47); Hemoglobin 11.5 g/dL (12.0-16.0); Immature Granulocytes # (auto) 0.03 K/uL (0.00-0.02); Immature Granulocytes % (auto) 0.6 %; Lymphocytes # (auto) 0.42 K/uL (1.2-3.4); Lymphocytes % (auto) 8.1 %; Mean Corpuscular Hemoglobin 29.3 pg (25-34); Mean Corpuscular Hgb Conc 33.2 g/dL (32-36); Mean Platelet Volume 8.9 fL (7.4-10.4); Monocytes # (auto) 0.28 K/uL (0.11-0.59); Monocytes % (auto) 5.4 %; Neutrophils # (auto) 4.22 K/uL (1.4-6.5); Neutrophils % (auto) 81.6 %; Platelet Count 285 K/uL (130-400); RDW Coefficient of Variation 17.8 % (11.5-14.5); RDW Standard Deviation 57.6 fL (36.4-46.3); Red Blood Count 3.93 M/uL (4.2-5.4); White Blood Count 5.17 K/uL (4.8-10.8)
[2020-07-18 11:47] LABS: INR 3.4 (0.9-1.1); Prothrombin Time 31.5 Seconds (9.0-12.0)
[2020-07-18 11:47] LABS: Appearance Urine Turbid (Clear); Bacteria Urine Automated 1+ (Negative); Bilirubin Urine Negative (Negative); Blood Urine Negative (Negative); Color Urine Dark Yellow; Epithelial Cell Urine Auto >30 /lpf (0-5); Glucose Urine UA Negative (Negative); Ketones Urine Negative (Negative); Leukocyte Esterase Urine Trace (Negative); Nitrite Urine Negative (Negative); Protein Urine Negative (Negative); RBC Urine Automated 0-4 /hpf (0-4); Specific Gravity Urine 1.024 (1.000-1.030); Urobilinogen Urine Positive (Negative); pH Urine >= 9.0 (4.5-7.5)
--- NOTE | 2020-07-18 11:51 | XRay Report ---
XR chest 1V portable CLINICAL HISTORY: Atypical chest pain COMPARISON STUDY: 05/09/2020 FINDINGS: There is a left-sided A-Port catheter. The cardiac and mediastinal contours remain stable. There is no failure. There is no focal pulmonary consolidation. There are no pleural effusions.[ IMPRESSION: No active disease in the chest. ACT 112: Negative or not required by law. Electronically signed by: Mick Orozco M.D. 07/18/2020 11:50 AM
--- NOTE | 2020-07-18 11:52 | Emergency Department Note ---
Impression & Plan Chest pain, Shortness of breath ED Provider Note NAME: BERT ZUÑIGA AGE: 50 SEX: F : 1970 ARRIVES VIA: Walk-In INFORMANT: Patient ED PROVIDER(S): [place] DO CHIEF COMPLAINT: Chest pain and shortness of breath HPI: Patient is a 42-year-old female who presents to the ER for chest pain and shortness of breath. Symptoms started yesterday. She has a history of breast cancer and undergoes IV treatments once week of Taxol. She notes that yesterday around 2 PM her shortness of breath and chest pain started. Swelling with movement. She has a history of PEs and is on Coumadin. Denies any new arm or jaw pain. No belly pain, nausea, vomiting or diarrhea. No dysuria, urgency or frequency. No fevers. No other exacerbating or remitting factors. ROS: See above HPI for pertinent positives & negatives. A total of 10 systems reviewed and were otherwise negative. PAST MEDICAL HISTORY:See Below PAST SURGICAL HISTORY:See Below FAMILY HISTORY:See Below SOCIAL HISTORY:See Below HOME MEDICATIONS:See Below ALLERGIES:See Below VITALS:See Below PHYSICAL EXAMINATION: GENERAL: Sitting up in bed, alert, chronically ill-appearing, disheveled, nontoxic EYE EXAM: normal conjunctiva. OROPHARYNX: no exudate, no erythema, lips, buccal mucosa, and tongue normal and mucous membranes are moist NECK: supple, no nuchal rigidity, no adenopathy, non-tender LUNGS: Clear to auscultation. Normal chest wall mechanics HEART: no murmurs, S1 normal and S2 normal ABDOMEN: abdomen soft, non-tender, normo-active bowel sounds, no masses, no rebound or guarding. UPPER EXTREMITIES: upper extremities are grossly normal. LOWER EXTREMITIES: No pitting edema. NEURO EXAM: Normal sensorium, cranial nerves II-XII grossly intact, normal speech, no gross weakness of arms, no gross weakness of legs. MEDICAL DECISION MAKING: Patient is a 50-year-old female who presents the ER for cough and shortness of breath with exertion. She has a history of breast cancer on Coumadin for previous PEs. Symptoms started yesterday. They have been gradually getting worse. Denies any upper respiratory symptoms. IV was established blood work was obtained. Labs show no significant leukocytosis. Mild anemia at 11.5 consistent with previous. INR was supratherapeutic at 3.4. BMP along with bilirubin LFTs were unremarkable. Troponin was detectable at 0.036 but not positive. Lipase was normal. UA was contaminated with multiple epithelial ce lls. Covid was negative. CT angio of the chest was performed as this lady does have cancer and is on Coumadin. CT angio was negative. She was still persistently tachycardic with heart rate in the low 100s. Her EKG was nondiagnostic. She was updated bedside. With the pump troponin although not positive and persistent tachycardia with exertional chest pain or shortness of breath did discuss with the hospitalist for observation. Triage Nursing notes reviewed. Limited review of prior medical records performed Vital Signs: reviewed and remarkable for hypertensive, tachycardic Differential diagnosis: Differential diagnoses includes but is not limited to pneumonia, bronchitis, COPD/Asthma exacerbation, pneumothorax, pulmonary embolism, congestive heart failure, acute coronary syndrome ER treatment provided: See below Diagnostics interpreted by me: ECG: Sinus rhythm rate of 104 Normal axis No PVCs Nonspecific ST wave changes in the inferior leads QTC 444 Cardiac Monitoring: An order was placed for continuous cardiac monitoring. The monitor shows a rate of 108 with sinus rhythm. Laboratory studies: As stated above and show below. Imaging studies: CT angio of the chest shows improvement of the bilateral PEs. Consultation(s): Discussed with hospitalist for further evaluation Kandi Dennis Procedures: none Critical Care: None Past Med/Surg History Medical History (Updated 07/18/20 @ 16:42 by [place] P[place] DO) Anemia Depression FH: mastectomy (03/07/20) Hypoxia Malignant neoplasm of upper-outer quadrant of right breast in female, estrogen receptor positive (01/12/20) Morbid obesity Nocturnal hypoxemia Surgical History (Updated 07/18/20 @ 14:36 by Kandi Dennis PA-C) Gastric bypass status for obesity H/O right mastectomy History of tubal ligation Status post vaginal hysterectomy (~10/2016) Family History (Updated 07/18/20 @ 14:35 by Kandi Dennis PA-C) Grandfather (Maternal) Lung cancer Unknown Stomach cancer Unknown Ovarian cancer Father Myocardial infarction Hx of CABG, Onset Age: 70 Mother Stroke Social History (Updated 07/18/20 @ 14:36 by Kandi L. 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 marital status: marital status details: 25 years Current Living Situation: Spouse Current Living Situation Comment: youngest daughter lives with patient and current occupational status: employed current occupation: post office How many Children do You have: 1 How many Children do You have Comment: 1 daughter, 2 stepdaughters Feels Safe at Home: Yes Childhood Exposure to Second-Hand Smoke: Yes caffeine: Yes (coffee and soda) during the past year weight has: remained stable Dental Care, Regularly: No Physical Activity Frequency: 1-2 Times per Week Physical Activity Frequency Comment: walks Seatbelt Use: sometimes Sunscreen Use: Yes Assistive Devices: Oxygen - Continuous Allergies Allergies Allergy/AdvReac Type Severity Reaction Status Date / Time No Known Allergies Allergy Unverified 07/18/20 12:16 Home Meds Home Medications Medication Instructions Recorded Confirmed cyanocobalamin (vitamin B-12) 1,000 mcg IM MONTHLY 05/09/20 07/18/20 lidocaine-prilocaine 1 applic TOPICAL .PRN/UD PRN 05/09/20 07/18/20 lorazepam 0.5 mg PO HS 05/09/20 07/18/20 oxycodone-acetaminophen 1 tab PO Q4H PRN 05/09/20 07/18/20 sertraline 50 mg PO HS 05/09/20 07/18/20 ondansetron HCl 8 mg PO Q8H PRN 05/12/20 07/18/20 prochlorperazine maleate 10 mg PO Q6H PRN 05/12/20 07/18/20 ergocalciferol (vitamin D2) 1,250 mcg PO WE 07/18/20 07/18/20 [Vitamin D2] paclitaxel [Taxol] 0 mg IV TH 07/18/20 07/18/20 warfarin 7.5 mg PO DAILY@1800 07/18/20 07/18/20 Results & Data (ED) Vital Signs Vital Signs - 24 hr 07/18/20 11:06 07/18/20 11:20 07/18/20 12:01 Temperature 37.6 C H Temperature Source Temporal Artery Scan Pulse Rate 107 H Pulse Rate [Apical] Pulse Rhythm Regular Pulse Strength Normal Respiratory Rate 20 Respiratory Effort / Characteristics Non-Labored Non-Labored Spontaneous Respiratory Depth Normal Normal Respiratory Pattern Regular Regular Blood Pressure 147/89 H Blood Pressure [Left Arm] Blood Pressure Mean 108 Blood Pressure Mean [Left Arm] Blood Pressure Position Sitting Pulse Oximetry 97 99 Oxygen Delivery Method Room Air Room Air Room Air Sepsis Recent Fever Within 48 Hours Yes Sepsis New/Unexplained Change in Mental Status N/A Sepsis Action Taken by Nursing No Action Required 07/18/20 12:46 Temperature Temperature Source Pulse Rate Pulse Rate [Apical] 95 H Pulse Rhythm Pulse Strength Respiratory Rate 20 Respiratory Effort / Characteristics Non-Labored Spontaneous Respiratory Depth Normal Respiratory Pattern Regular Blood Pressure Blood Pressure [Left Arm] 121/93 Blood Pressure Mean Blood Pressure Mean [Left Arm] 102 Blood Pressure Position Pulse Oximetry 95 Oxygen Delivery Method Room Air Sepsis Recent Fever Within 48 Hours Sepsis New/Unexplained Change in Mental Status Sepsis Action Taken by Nursing Laboratory Data Result diagrams: 07/18/20 11:24 07/18/20 11:24 Lab Results 07/18/20 07/18/20 07/18/20 Range/Units 11:24 11:24 11:24 WBC 5.17 (4.8-10.8) K/uL RBC 3.93 L (4.2-5.4) M/uL Hgb 11.5 L (12.0-16.0) g/dL Hct 34.6 L (37-47) % MCV 88.0 (80-100) fL MCH 29.3 (25-34) pg MCHC 33.2 (32-36) g/dL RDW Std Deviation 57.6 H (36.4-46.3) fL RDW Coeff of Jake 17.8 H (11.5-14.5) % Plt Count 285 (130-400) K/uL MPV 8.9 (7.4-10.4) fL Immature Gran % (Auto) 0.6 % Neut % (Auto) 81.6 % Lymph % (Auto) 8.1 % [place] % (Auto) 5.4 % Eos % (Auto) 3.7 % Baso % (Auto) 0.6 % Neut # (Auto) 4.22 (1.4-6.5) K/uL Lymph # (Auto) 0.42 L (1.2-3.4) K/uL [place] # (Auto) 0.28 (0.11-0.59) K/uL Eos # (Auto) 0.19 (0-0.5) K/uL Baso # (Auto) 0.03 (0-0.2) K/uL Immature Gran # (Auto) 0.03 H (0.00-0.02) K/uL ESR (0-21) mm/hr PT 31.5 H (9.0-12.0) Seconds INR 3.4 H (0.9-1.1) Sodium 141 (136-145) mmol/L Potassium 3.6 (3.5-5.1) mmol/L Chloride 105 (98-107) mmol/L Carbon Dioxide 29 (21-32) mmol/L Anion Gap 6.0 (3-11) BUN 8 (7-18) mg/dl Creatinine 0.60 (0.6-1.2) mg/dl Est Cr Clr Drug Dosing 136.4 ml/min Est GFR ( Amer) 124.0 Est GFR (Non-Af Amer) 107.0 BUN/Creatinine Ratio 13.8 (10-20) Glucose 92 (70-99) mg/dl Calcium 9.6 (8.5-10.1) mg/dl Total Bilirubin 0.7 (0.2-1) mg/dl AST 42 H (15-37) U/L ALT 59 (12-78) U/L Alkaline Phosphatase 115 (45-117) U/L Troponin I 0.036 (0-0.045) ng/ml C-Reactive Protein (0-0.29) mg/dl Total Protein 7.2 (6.4-8.2) gm/dl Albumin 3.4 (3.4-5.0) gm/dl Globulin 3.8 (2.5-4.0) gm/dl Albumin/Globulin Ratio 0.9 (0.9-2) Lipase 98 (73-393) U/L Urine Color Urine Appearance (Clear) Urine pH (4.5-7.5) Ur Specific [place] (1.000-1.030) Urine Protein (Negative) Urine Glucose (UA) (Negative) Urine Ketones (Negative) Urine Blood (Negative) Urine Nitrite (Negative) Urine Bilirubin (Negative) Urine Urobilinogen (Negative) Ur Leukocyte Esterase (Negative) Urine WBC (Auto) (0-5) /hpf Urine RBC (Auto) (0-4) /hpf U Hyaline Cast (Auto) (0-5) /lpf U Epithel Cells (Auto) (0-5) /lpf Urine Bacteria (Auto) (Negative) COVID-19 Eval Order SARS-CoV-2, RNA, NAAT (NEGATIVE) 07/18/20 07/18/20 07/18/20 Range/Units 11:24 11:24 11:32 WBC (4.8-10.8) K/uL RBC (4.2-5.4) M/uL Hgb (12.0-16.0) g/dL Hct (37-47) % MCV (80-100) fL MCH (25-34) pg MCHC (32-36) g/dL RDW Std Deviation (36.4-46.3) fL RDW Coeff of Jake (11.5-14.5) % Plt Count (130-400) K/uL MPV (7.4-10.4) fL Immature Gran % (Auto) % Neut % (Auto) % Lymph % (Auto) % [place] % (Auto) % Eos % (Auto) % Baso % (Auto) % Neut # (Auto) (1.4-6.5) K/uL Lymph # (Auto) (1.2-3.4) K/uL [place] # (Auto) (0.11-0.59) K/uL Eos # (Auto) (0-0.5) K/uL Baso # (Auto) (0-0.2) K/uL Immature Gran # (Auto) (0.00-0.02) K/uL ESR 47 H (0-21) mm/hr PT (9.0-12.0) Seconds INR (0.9-1.1) Sodium (136-145) mmol/L Potassium (3.5-5.1) mmol/L Chloride (98-107) mmol/L Carbon Dioxide (21-32) mmol/L Anion Gap (3-11) BUN (7-18) mg/dl Creatinine (0.6-1.2) mg/dl Est Cr Clr Drug Dosing ml/min Est GFR ( Amer) Est GFR (Non-Af Amer) BUN/Creatinine Ratio (10-20) Glucose (70-99) mg/dl Calcium (8.5-10.1) mg/dl Total Bilirubin (0.2-1) mg/dl AST (15-37) U/L ALT (12-78) U/L Alkaline Phosphatase (45-117) U/L Troponin I (0-0.045) ng/ml C-Reactive Protein 6.59 H (0-0.29) mg/dl Total Protein (6.4-8.2) gm/dl Albumin (3.4-5.0) gm/dl Globulin (2.5-4.0) gm/dl Albumin/Globulin Ratio (0.9-2) Lipase (73-393) U/L Urine Color Dark Yellow Urine Appearance Turbid A (Clear) Urine pH >= 9.0 H (4.5-7.5) Ur Specific [place] 1.024 (1.000-1.030) Urine Protein Negative (Negative) Urine Glucose (UA) Negative (Negative) Urine Ketones Negative (Negative) Urine Blood Negative (Negative) Urine Nitrite Negative (Negative) Urine Bilirubin Negative (Negative) Urine Urobilinogen Positive H (Negative) Ur Leukocyte Esterase Trace H (Negative) Urine WBC (Auto) 5-10 H (0-5) /hpf Urine RBC (Auto) 0-4 (0-4) /hpf U Hyaline Cast (Auto) 1-5 (0-5) /lpf U Epithel Cells (Auto) >30 H (0-5) /lpf Urine Bacteria (Auto) 1+ H (Negative) COVID-19 Eval Order SARS-CoV-2, RNA, NAAT (NEGATIVE) 07/18/20 07/18/20 Range/Units 11:57 11:57 WBC (4.8-10.8) K/uL RBC (4.2-5.4) M/uL Hgb (12.0-16.0) g/dL Hct (37-47) % MCV (80-100) fL MCH (25-34) pg MCHC (32-36) g/dL RDW Std Deviation (36.4-46.3) fL RDW Coeff of Jake (11.5-14.5) % Plt Count (130-400) K/uL MPV (7.4-10.4) fL Immature Gran % (Auto) % Neut % (Auto) % Lymph % (Auto) % [place] % (Auto) % Eos % (Auto) % Baso % (Auto) % Neut # (Auto) (1.4-6.5) K/uL Lymph # (Auto) (1.2-3.4) K/uL [place] # (Auto) (0.11-0.59) K/uL Eos # (Auto) (0-0.5) K/uL Baso # (Auto) (0-0.2) K/uL Immature Gran # (Auto) (0.00-0.02) K/uL ESR (0-21) mm/hr PT (9.0-12.0) Seconds INR (0.9-1.1) Sodium (136-145) mmol/L Potassium (3.5-5.1) mmol/L Chloride (98-107) mmol/L Carbon Dioxide (21-32) mmol/L Anion Gap (3-11) BUN (7-18) mg/dl Creatinine (0.6-1.2) mg/dl Est Cr Clr Drug Dosing ml/min Est GFR ( Amer) Est GFR (Non-Af Amer) BUN/Creatinine Ratio (10-20) Glucose (70-99) mg/dl Calcium (8.5-10.1) mg/dl Total Bilirubin (0.2-1) mg/dl AST (15-37) U/L ALT (12-78) U/L Alkaline Phosphatase (45-117) U/L Troponin I (0-0.045) ng/ml C-Reactive Protein (0-0.29) mg/dl Total Protein (6.4-8.2) gm/dl Albumin (3.4-5.0) gm/dl Globulin (2.5-4.0) gm/dl Albumin/Globulin Ratio (0.9-2) Lipase (73-393) U/L Urine Color Urine Appearance (Clear) Urine pH (4.5-7.5) Ur Specific [place] (1.000-1.030) Urine Protein (Negative) Urine Glucose (UA) (Negative) Urine Ketones (Negative) Urine Blood (Negative) Urine Nitrite (Negative) Urine Bilirubin (Negative) Urine Urobilinogen (Negative) Ur Leukocyte Esterase (Negative) Urine WBC (Auto) (0-5) /hpf Urine RBC (Auto) (0-4) /hpf U Hyaline Cast (Auto) (0-5) /lpf U Epithel Cells (Auto) (0-5) /lpf Urine Bacteria (Auto) (Negative) COVID-19 Eval Order Covid19 [facility]Now [facility] SARS-CoV-2, RNA, NAAT NEGATIVE (NEGATIVE) Administered Medications Sodium Chloride (Nss 1000ml) 1,000 mls @ 60 mls/hr IV .[id number] BASIL Stop: 07/19/20 07:24 Last Admin: 07/18/20 16:08 Dose: 60 mls/hr Documented by: [id number] Discontinued Medications Al Hydrox/Mg Hydrox/Simethicone 1 ml/Diphenhydramine HCl 2.5 mg/Lidocaine HCl 1 ml/ Sucralfate 200 mg/ BARCODE IDENTIFIER 1 ea 0 ml PO ONE ONE Stop: 07/18/20 14:46 Last Admin: 07/18/20 15:14 Dose: 5 ml Documented by: [id number] Sodium Chloride (Nss 1000ml) 1,000 mls @ 999 mls/hr IV .[id number] ONE Stop: 07/18/20 12:31 Last Infusion: 07/18/20 12:45 Dose: 0 mls/hr Documented by: [id number] Admin: 07/18/20 11:36 Dose: 999 mls/hr Documented by: [id number] Ioversol (Optiray 320 125ml) 120 ml IV ONCE ONE Stop: 07/18/20 12:09 Last Admin: 07/18/20 12:09 Dose: 120 ml Documented by: [id number] Discharge Plan Visit Data Chief Complaint: Shortness of Breath/Dyspnea Stated Complaint: SOB DVT IN LUNGS ED Provider: De Perrin Discharge Problem: Chest pain, Shortness of breath Patient Disposition: Admitted As Inpatient Discharge Instructions Interventions: ED Discharge Assessment Last Done: 07/18/20 15:12 Discharge Problem: Chest pain Qualifiers: Chest pain type: unspecified Qualified Code(s): R07.9 - Chest pain, unspecified
[2020-07-18 12:02] LABS: Albumin Level 3.4 gm/dl (3.4-5.0); BUN Creatinine Ratio 13.8 (10-20); Calcium 9.6 mg/dl (8.5-10.1); Creatinine Clr Calc Pharmacy 136.4 ml/min; Potassium 3.6 mmol/L (3.5-5.1)
[2020-07-18 12:07] LABS: Albumin Globulin Ratio 0.9 (0.9-2); Bilirubin,Total 0.7 mg/dl (0.2-1); Globulin 3.8 gm/dl (2.5-4.0); Total Protein 7.2 gm/dl (6.4-8.2); Troponin I 0.036 ng/ml (0-0.045)
[2020-07-18] MEDS ORDERED: OPTIRAY 320 125ml IV ONE (12:08)
--- NOTE | 2020-07-18 12:28 | CT Scan Report ---
CT angio chest PE protocol CT DOSE: 770.85 mGy.cm HISTORY: 50 years-old Female with PE. Acute chest pain with irregular heart rate. History of breast cancer, currently on chemotherapy. TECHNIQUE: Multiple CTA images of the chest were obtained after the intravenous administration of 120 ml Optiray 320. Coronal and sagittal MIPS were obtained from the axial data set and were submitted for review. All measurements were obtained according to NASCET criteria. A dose lowering technique w as utilized adhering to the principles of ALARA. COMPARISON: CTA chest 05/09/2020 FINDINGS: CTA: Moderate cardiomegaly. No pericardial effusion. Mild coronary artery calcifications. No thoracic aort ic aneurysm or dissection. Patency of the imaged great vessels. Left IJ [id number] catheter distal tip terminates in the right atrium. Suboptimal opacification of the pulmonary arterial tree secondar y to contrast bolus timing. Notably, the segmental and subsegmental branches within the lung bases ar e not well visualized. Decreased pulmonary emboli compared to the prior study from 05/09/2020. Tiny li near filling defects are noted within segmental branches of the left lower lobe (for example please s ee image 118 series 4). No new pulmonary emboli. CT CHEST: Unremarkable thyroid. No adenopathy. There is no pneumothorax, pleural effusion or overt pulmonary ed carley. No pulmonary infarct. There is no airspace consolidation typical for pneumonia. Mild bibasilar a telectasis. Central airways are patent. Prior gastric bypass. Hepatic steatosis. Splenomegaly. Prior right-sided mastectomy with decreased si ze of the fluid collection within the right chest wall. No acute fracture or suspicious bone lesion. IMPRESSION: 1. Decreased pulmonary emboli compared to the study from 05/09/2020 with small residual linear pulmona ry emboli noted within segmental branches of the left lower lobe. 2. No pleural effusion, adenopathy or airspace consolidation. 3. Right mastectomy with decreased size of the right chest wall fluid collection. 4. Additional findings as above. ACT 112: Negative or not required by law. The above report was generated using voice recognition software. It may contain grammatical, syntax o r spelling errors. Electronically signed by: Xavi Vidal M.D. 07/18/2020 12:27 PM
--- NOTE | 2020-07-18 14:35 | History & Physical Report ---
Date of Service July 18, 2020 Assessment & Plan (1) Chest pain: (2) Exertional dyspnea: This is a 50-year-old female who has significant past medical history of morbid obesity, history of gastric bypass, active right breast cancer status post mastectomy currently undergoing IV chemotherapy, nocturnal hypoxemia on 2 L of O2 at bedtime, depression, and chronic anemia who presents to ED secondary to chest tightness and shortness of breath x3 days. Chest tightness, exertional SOB and tachycardia Also complains of a burning component No prior hx of CAD, +FH father cabg in 70s, mother fatal CVA @ 55 CTA chest reveals decreasing pulmonary emboli, no aortic dissection, pulmonary edema or pulmonary consolidation ESR/CRP47 and 6.59, possibly elevated in setting of breast ca/PE, obtain ECHO r/o pericarditis admit to pcu cycle troponins - previously elevated 2/2 to RV strain obtain echo - last 05/09 moderate to severe dilated right ventricle, reduced right ventricular systolic function, PASP 56 Continue warfarin -we will give reduced dose this evening at 5 mg otherwise continue daily 7.5 mg INR daily Give Magic swizzle x1 now Famotidine 20 mg daily in event symptoms related to GI Symptoms do not appear to be musculoskeletal as they are not reproducible NPO after midnight in event stress test in a.m. Urine + trace leuks, numerous epis, likely contaminated, she is asymptomatic, await culture (3) Pulmonary embolism: dx 05/09 along with b/l lower ext DVT on warfarin, INR 3.4 Takes 7.5mg daily will give 5mg x 1 today; then 7.5mg daily tomorrow INR daily (4) Nocturnal hypoxemia: 2 L of O2 at HS Underwent nocturnal sleep study prior to discharge in May Recommend formal sleep study eval at discharge (5) Breast cancer, right breast: s/p mastectomy with axillary lymph node dissection Currently undergoing chemotherapy with Taxol, last treatment 07/13 Next treatment 07/[address] Bonilla (6) DVT prophylaxis: warfarin Dispo:PCU PCP: [facility] FULL CODE Pt was seen and examined in collaboration with Dr. Sen, please see addendum History of Present Illness Chief Complaint: Chest tightness and shortness of breath x3 days. Primary Care Provider: Latrice Lemons, DO This is a 50-year-old female who has significant past medical history of morbid obesity, history of gastric bypass, active right breast cancer status post mastectomy currently undergoing IV chemotherapy, nocturnal hypoxemia on 2 L of O2 at bedtime, depression, and chronic anemia who presents to ED secondary to chest tightness and shortness of breath x3 days. Of significance patient was hospitalized 05/2020 secondary to acute pulmonary embolism and DVT. She had an echocardiogram done as outpatient on 05/09 which revealed moderate to severe dilated right ventricle, reduced right ventricular systolic function and elevated pulmonary artery systolic pressure. She was referred to ED where she was diagnosed with PE, started on IV heparin, transition to Lovenox and eventual Coumadin. Imaging did also reveal bilateral lower extremity DVTs and bilateral popliteal veins. Since discharge she had been doing well until Friday after work. Over the weekend she was very tired and did not do a whole lot. She noticed increased sleeping and fatigue. Yesterday when she was doing laundry she developed chest tightness that went from the top of her epigastrium up to her throat. She does not describe it as a crystal pain but more of a tightness. Would worsen with deep breathing. Not associated with movement or lying down. Was associated with shortness of breath especially with exertion. Denies associated diaphoresis or nausea. She also noticed palpitations and elevated heart rate. Yesterday she ended up lying down for a nap and felt her symptoms improved. She did use her pulse ox at home which read as high as 120s. Symptoms returned while she was at work today in the seated position. She also felt very labored when talking with her coworkers. She denies any recent illness, fever, chills, sweats, lightheadedness, dizziness, URI symptoms, cough, shortness of breath at rest, hemoptysis, nausea, vomiting, abdominal pain, dysuria, increased urgency or frequency with urination, melena or hematochezia. She been compliant with Coumadin. She states she does not go to the bathroom regularly, last BM was yesterday and very minimal. She does have history of acid reflux and feels maybe symptoms could be similar. Positive family history of CAD with father who underwent CABG in his 70s. She is a non-smoker. In ED she remained hemodynamically stable although mildly tachycardic. Lab work notable for H&H 11.5 and 34.6 WBC 5.17, platelet 285, ESR 47, INR 3.4, BUN 8, creatinine 0.60, AST 42, troponin 0.036, CRP 6.59, urinalysis positive for urobilinogen, leukocyte esterase, greater than 30 epithelial cells and +1 bacteria. Chest x-ray negative for acute abnormality. Chest CTA reveals decreased pulmonary emboli compared to the study from 05/09 with residual linear pulmonary emboli noted in the segmental branches of left lower lobe, no pleural effusion adenopathy or airspace consolidation. No new pulmonary emboli. Allergies Allergy/AdvReac Type Severity Reaction Status Date / Time No Known Allergies Allergy Unverified 07/18/20 12:16 Home Medications Medication Instructions Recorded Confirmed Type cyanocobalamin (vitamin B-12) 1,000 mcg IM MONTHLY 05/09/20 07/18/20 History lidocaine-prilocaine 1 applic TOPICAL .PRN/UD PRN 05/09/20 07/18/20 History lorazepam 0.5 mg PO HS 05/09/20 07/18/20 History oxycodone-acetaminophen 1 tab PO Q4H PRN 05/09/20 07/18/20 History sertraline 50 mg PO HS 05/09/20 07/18/20 History ondansetron HCl 8 mg PO Q8H PRN 05/12/20 07/18/20 History prochlorperazine maleate 10 mg PO Q6H PRN 05/12/20 07/18/20 History ergocalciferol (vitamin D2) 1,250 mcg PO WE 07/18/20 07/18/20 History [Vitamin D2] paclitaxel 0 mg IV TH 07/18/20 07/18/20 History warfarin 7.5 mg PO DAILY@1800 07/18/20 07/18/20 History pantoprazole 40 mg PO QAM 30 Days #30 tab 07/19/20 Rx Past Med/Surg History Medical History Anemia Depression FH: mastectomy (03/07/20) Hypoxia Malignant neoplasm of upper-outer quadrant of right breast in female, estrogen receptor positive (01/12/20) Morbid obesity Nocturnal hypoxemia Surgical History Gastric bypass status for obesity H/O right mastectomy History of tubal ligation Status post vaginal hysterectomy (~10/2016) Family History Grandfather (Maternal) Lung cancer Unknown Stomach cancer Unknown Ovarian cancer Father Myocardial infarction Hx of CABG, Onset Age: 70 Mother Stroke Social History Smoking Status: Never smoker Second Hand Exposure: Yes; Hx Alcohol Use: No Hx Substance Use: No Preferred Language: Czech Communication Ability: Effective Grease Maker Required: No Beliefs That Will Affect Care: None marital status: marital status details: 25 years Current Living Situation: Spouse and Family Current Living Situation Comment: youngest daughter lives with patient and current occupational status: employed current occupation: post office How many Children do You have: 1 How many Children do You have Comment: 1 daughter, 2 stepdaughters Other Information That Helps Us Care for You: No Feels Safe at Home: Yes Safety Concerns: Afraid for Self Childhood Exposure to Second-Hand Smoke: Yes caffeine: Yes (coffee and soda) during the past year weight has: remained stable Dental Care, Regularly: No Physical Activity Frequency: 1-2 Times per Week Physical Activity Frequency Comment: walks Seatbelt Use: sometimes Sunscreen Use: Yes Assistive Devices: Oxygen - at Night Assistive Devices Comment: 2 lPM @ HS Review of Systems Review of Systems: All systems reviewed & are unremarkable except as noted in HPI & below Physical Exam Physical Exam: Constitutional: Morbidly obese, female, WD/WN, vitals as above, NAD, sitting up in bed, pleasant, conversing easily Head: Normocephalic, Atraumatic Eyes: PERRL, conjunctivae normal, anicteric sclerae ENMT: external ear and nose normal, oropharynx normal Neck: trachea midline, no thyromegaly normal visual inspection Respiratory: normal respiratory effort, lungs clear to auscultation, no wheeze, rales, rhonchi. Normal insp/exp effort, no accessory muscle use Cardiovascular: Tachycardic rate, regular rhythm, no murmur, no edema Vessels: no JVD or carotid bruit Chest: normal inspection of chest, left anterior chest wall port noted Abdomen: normal bowel sounds, obese abdomen, soft, nontender, no hepatosplenomegaly Musculoskeletal: no cyanosis or clubbing, extremities motor strength 5/5 Skin: no rashes, warm and dry normal turgor Neurologic: PERRL, EOMI, accommodation nl, no face palsy, no dysarthria CN's II-XI intact bilaterally and moves all extremities Psychiatric: A+Ox3, euthymic affect : deferred Results & Data Results & Data ([facility]) Vital Signs (Past 12 Hours) Vital Signs Temp Pulse Pulse Resp BP BP Pulse Ox 07/18/20 12:46 95 H 20 121/93 95 07/18/20 12:01 99 07/18/20 11:06 37.6 C H 107 H 20 147/89 H 97 Diagnostic Findings CXR: IMPRESSION: No active disease in the chest. Chest CTA: IMPRESSION: 1. Decreased pulmonary emboli compared to the study from 05/09/2020 with small residual linear pulmonary emboli noted within segmental branches of the left lower lobe. 2. No pleural effusion, adenopathy or airspace consolidation. 3. Right mastectomy with decreased size of the right chest wall fluid collection. 4. Additional findings as above. Medications Administered Discontinued Medications Sodium Chloride (Nss 1000ml) 1,000 mls @ 999 mls/hr IV .Q1H1M ONE Stop: 07/18/20 12:31 Last Infusion: 07/18/20 12:45 Dose: 0 mls/hr Documented by: [id number] Admin: 07/18/20 11:36 Dose: 999 mls/hr Documented by: [id number] Ioversol (Optiray 320 125ml) 120 ml IV ONCE ONE Stop: 07/18/20 12:09 Last Admin: 07/18/20 12:09 Dose: 120 ml Documented by: [id number] ECG Rate (beats per minute): 104 Rhythm: sinus rhythm Findings: + nonspecific-ST abn Additional Comments: t wave inversion lead III COVID-19 Results Results COVID-19 Adm Lab Results: RBC 3.58 M/uL (4.2-5.4) L 07/19/20 WBC 3.58 K/uL (4.8-10.8) L 07/19/20 Hgb 10.3 g/dL (12.0-16.0) L 07/19/20 Hct 31.3 % (37-47) L 07/19/20 Plt Count 270 K/uL (130-400) 07/19/20 Neutrophils (%) (Auto) 67.6 % 07/19/20 Lymphocytes (%) (Auto) 15.9 % 07/19/20 Monocytes # (Auto) 0.33 K/uL (0.11-0.59) 07/19/20 Eosinophils # (Auto) 0.14 K/uL (0-0.5) 07/19/20 Immature Granulocyte % (Auto) 1.4 % 07/19/20 Neutrophils # (Auto) 2.42 K/uL (1.4-6.5) 07/19/20 Lymphocytes # (Auto) 0.57 K/uL (1.2-3.4) L 07/19/20 Monocytes # (Auto) 0.33 K/uL (0.11-0.59) 07/19/20 Eosinophils # (Auto) 0.14 K/uL (0-0.5) 07/19/20 Basophils # (Auto) 0.07 K/uL (0-0.2) 07/19/20 Immature Granulocyte # (Auto) 0.05 K/uL (0.00-0.02) H 07/19/20 Na 141 mmol/L (136-145) 07/19/20 K 3.9 mmol/L (3.5-5.1) 07/19/20 Cl 110 mmol/L (98-107) H 07/19/20 CO2 26 mmol/L (21-32) 07/19/20 Anion Gap 5.0 (3-11) 07/19/20 BUN 7 mg/dl (7-18) 07/19/20 Creatinine 0.41 mg/dl (0.6-1.2) L 07/19/20 BUN/Creatinine Ratio 16.8 (10-20) 07/19/20 Glucose Level 97 mg/dl (70-99) 07/19/20 Ca 8.9 mg/dl (8.5-10.1) 07/19/20 Total Bilirubin 0.7 mg/dl (0.2-1) 07/19/20 AST/SGOT 26 U/L (15-37) 07/19/20 ALT/SGPT 40 U/L (12-78) 07/19/20 Alkaline Phosphatase 98 U/L (45-117) 07/19/20 Total Protein 6.3 gm/dl (6.4-8.2) L 07/19/20 Albumin 2.9 gm/dl (3.4-5.0) L 07/19/20 Globulin 3.4 gm/dl (2.5-4.0) 07/19/20 Albumin/Globulin Ratio 0.9 (0.9-2) 07/19/20 Troponin I 0.056 ng/ml (0-0.045) H* 07/18/20 CRP 6.59 mg/dl (0-0.29) H 07/18/20 INR 2.6 (0.9-1.1) H 07/19/20 SARS-CoV-2, RNA, NAAT NEGATIVE (NEGATIVE) 07/18/20 Chest X-Ray 07/18/20 Code Status & VTE Plan Code Status Full Code VTE Prophylaxis Plan VTE Prophylaxis will be ordered: No Reason for no VTE drug order: Treatment not indicated Reason for no VTE mechanical prophylaxis: Treatment not indicated Supervising Physician Co-Signing Physician Notes Attending Addendum: care coordinated with FRANCIE Lowery please refer to her notes for full details, I agree with her notes patient seen and examined, records reviewed by myself as well on exam, patient seen resting in bed, comfortable, not in distress states she feels improved compared to admission no active chest pain, dyspnea, palpitations, dizziness no other symptoms VS noted and reviewed oriented x 3, not in distress, speaks in sentences with no effort nor accessory muscle use normal rate, regular rhythm, no murmurs clear breath sounds bilaterally non distended, soft, nontender no bipedal edema, erythema, warmth no neuro deficits WBC 5.1 Hg 11.5 Crea 0.60 ASSESSMENT AND PLAN DYSPNEA ON EXERTION WITH PALPITATION r/o ACS serial tropinins, EKG, echo Cardio consult Acute PE ruled out on Coumadin other diagnoses and plan of care as per FRANCIE Lowery notes all noted and reviewed including below Barry Sen MD (1) Pulmonary embolism Acute cor pulmonale presence: with acute cor pulmonale Chronicity: acute Pulmonary embolism type: unspecified Qualified Code(s): I26.09 - Other pulmonary embolism with acute cor pulmonale (2) Chest pain Chest pain type: unspecified Qualified Code(s): R07.9 - Chest pain, unspecified
[2020-07-18] MEDS ORDERED: SODIUM CHLORIDE 0.9% 1000ML 1,000 ML IV SCH (14:45)
[2020-07-18] MEDS ORDERED: ALUMINUM/MAGNESIUM SUSP 30 ML UDC PO PRN (15:57)
[2020-07-18] MEDS ORDERED: POLYETHYLENE (MIRALAX) 17 GM PACK PO PRN (15:57)
[2020-07-18] MEDS ORDERED: MAGNESIUM HYDROXIDE SUSP 30 ML UDC PO PRN (15:57)
[2020-07-18] MEDS ORDERED: oxyCODONE/ACETAMINOPHEN 5mg/325mg TAB PO PRN (15:57)
[2020-07-18] MEDS ORDERED: ONDANSETRON INJ 2 MG/ML 2 ML VIAL IV PRN (15:57)
[2020-07-18] MEDS ORDERED: ACETAMINOPHEN 325 MG TAB PO PRN (15:57)
[2020-07-18] MEDS ORDERED: WARFARIN SOD 5 MG TAB PO ONE (16:30)
[2020-07-18] MEDS: FAMOTIDINE 20 MG TAB PO SCH (17:02)
[2020-07-18] MEDS ORDERED: SERTRALINE HCL 50 MG TABLET PO SCH (21:00)
[2020-07-18] MEDS ORDERED: LORazepam 0.5 MG TAB PO SCH (21:00)
--- NOTE | 2020-07-19 06:11 | Electrocardiogram Report ---
Test Reason : Blood Pressure : / mmHG Vent. Rate : 104 BPM Atrial Rate : 104 BPM P-R Int : 154 ms QRS Dur : 084 ms QT Int : 338 ms P-R-T Axes : 027 -02 022 degrees QTc Int : 444 ms Sinus tachycardia Nonspecific T wave abnormality When compared with ECG of 11-MAY-2020 06:25, Criteria for Anteroseptal infarct are no longer Present Nonspecific T wave abnormality, improved in Lateral leads QT has shortened Confirmed by Karlos Garcia ([id number]) on 07/19/2020 6:11:25 AM Referred By: REFERRED SELF Confirmed By:Karlos Garcia
[2020-07-19 06:18] LABS: Basophils # (auto) 0.07 K/uL (0-0.2); Eosinophils # (auto) 0.14 K/uL (0-0.5); Eosinophils % (auto) 3.9 %; Hematocrit (blood only) 31.3 % (37-47); Hemoglobin 10.3 g/dL (12.0-16.0); Immature Granulocytes # (auto) 0.05 K/uL (0.00-0.02); Immature Granulocytes % (auto) 1.4 %; Lymphocytes # (auto) 0.57 K/uL (1.2-3.4); Lymphocytes % (auto) 15.9 %; Mean Corpuscular Hemoglobin 28.8 pg (25-34); Mean Corpuscular Hgb Conc 32.9 g/dL (32-36); Mean Corpuscular Volume 87.4 fL (80-100); Mean Platelet Volume 9.1 fL (7.4-10.4); Monocytes # (auto) 0.33 K/uL (0.11-0.59); Monocytes % (auto) 9.2 %; Neutrophils # (auto) 2.42 K/uL (1.4-6.5); Neutrophils % (auto) 67.6 %; Platelet Count 270 K/uL (130-400); RDW Coefficient of Variation 17.7 % (11.5-14.5); RDW Standard Deviation 56.9 fL (36.4-46.3); Red Blood Count 3.58 M/uL (4.2-5.4); White Blood Count 3.58 K/uL (4.8-10.8)
[2020-07-19 06:33] LABS: INR 2.6 (0.9-1.1); Prothrombin Time 24.7 Seconds (9.0-12.0)
[2020-07-19 06:49] LABS: Albumin Level 2.9 gm/dl (3.4-5.0); BUN Creatinine Ratio 16.8 (10-20); Calcium 8.9 mg/dl (8.5-10.1); Creatinine Clr Calc Pharmacy 199.6 ml/min; Est GFR (African American) 140.6; Est GFR (Non-African American) 121.3; Magnesium 2.1 mg/dl (1.8-2.4); Potassium 3.9 mmol/L (3.5-5.1)
[2020-07-19 06:52] LABS: Albumin Globulin Ratio 0.9 (0.9-2); Bilirubin,Total 0.7 mg/dl (0.2-1); Globulin 3.4 gm/dl (2.5-4.0); Total Protein 6.3 gm/dl (6.4-8.2)
[2020-07-19] MEDS: FAMOTIDINE 20 MG TAB PO SCH (08:48)
[2020-07-19] MEDS ORDERED: ERGOCALCIFEROL 50,000 UNITS 1250 MCG CAP PO SCH (09:00)
[2020-07-19] MEDS ORDERED: PANTOprazole 40 MG TAB PO SCH (09:45)
--- NOTE | 2020-07-19 09:47 | Cardiology Consultation ---
Date of Consultation July 19, 2020 Assessment & Plan (1) Chest pain: (2) Breast cancer, right breast: (3) Pulmonary embolism: (4) Elevated troponin level: (5) Right ventricular enlargement: This patient is currently under treatment for breast cancer with chemotherapy and had a recent pulmonary emboli in May. Needless to say, she is under quite a bit of stress. She has never been on stress ulcer prophylaxis. She does have a history of reflux. I think her chest discomfort is atypical and that is not related to activity. Her EKGs are essentially normal. Cardiac troponins remain slightly elevated as they were in May during her acute pulmonary emboli. I do not believe her chest pain at this time is due to acute coronary syndrome. Furthermore, she is not a good candidate for a provocative stress test due to her body habitus and recent pulmonary emboli. At this time, I think the risk versus benefit of a cardiac catheterization would favor a noninvasive approach. I started her today on Protonix 40 mg daily. She is currently pain-free and feels well. I would continue her warfarin. I started her on a diet today. If she has no additional chest discomfort and feels well then I think she can be discharged tomorrow to outpatient follow-up. History of Present Illness Attending Physician: Jennifer Adrian MD History of Present Illness This is a 50-year-old female with a history of obesity, gastric bypass surgery and metastatic breast cancer currently under treatment with chemotherapy. In May, the patient had a pulmonary emboli and by ultrasound had right ventricular strain. She was started on warfarin and has been doing reasonably well. She has been receiving chemotherapy and over the weekend she felt played out and tired. She has a history of reflux and began to have epigastric bloating and retrosternal chest discomfort that she thought might be related. Her symptoms were not associated to activity. She does have some baseline shortness of breath due to her obesity and recent chemotherapy. She has had no melena or hematochezia. No nausea or vomiting. She did not initially get relief from belching but developed some additional chest discomfort which eventually resolved and she felt better. She has no prior history of heart disease. She is a nondiabetic and a never smoke. No history of hypertension. Her EKG on admission is essentially normal and has remained unchanged. She had elevated cardiac troponins in May with her pulmonary emboli and she continues to have borderline elevation on this admission. Follow-up CT of the chest indicates pulmonary emboli are resolving. Follow-up echocardiogram indicates that her right heart strain has improved. No wall motion abnormalities that would suggest ischemic heart disease. Allergies Allergy/AdvReac Type Severity Reaction Status Date / Time No Known Allergies Allergy Unverified 07/18/20 12:16 Home Medications Medication Instructions Recorded Confirmed Type cyanocobalamin (vitamin B-12) 1,000 mcg IM MONTHLY 05/09/20 07/18/20 History lidocaine-prilocaine 1 applic TOPICAL .PRN/UD PRN 05/09/20 07/18/20 History lorazepam 0.5 mg PO HS 05/09/20 07/18/20 History oxycodone-acetaminophen 1 tab PO Q4H PRN 05/09/20 07/18/20 History sertraline 50 mg PO HS 05/09/20 07/18/20 History ondansetron HCl 8 mg PO Q8H PRN 05/12/20 07/18/20 History prochlorperazine maleate 10 mg PO Q6H PRN 05/12/20 07/18/20 History ergocalciferol (vitamin D2) 1,250 mcg PO WE 07/18/20 07/18/20 History [Vitamin D2] paclitaxel 0 mg IV TH 07/18/20 07/18/20 History warfarin 7.5 mg PO DAILY@1800 07/18/20 07/18/20 History pantoprazole 40 mg PO QAM 30 Days #30 tab 07/19/20 Rx Patient History Medical History Anemia Depression FH: mastectomy (03/07/20) Hypoxia Malignant neoplasm of upper-outer quadrant of right breast in female, estrogen receptor positive (01/12/20) Morbid obesity Nocturnal hypoxemia Surgical History Gastric bypass status for obesity H/O right mastectomy History of tubal ligation Status post vaginal hysterectomy (~10/2016) Family History Grandfather (Maternal) Lung cancer Unknown Stomach cancer Unknown Ovarian cancer Father Myocardial infarction Hx of CABG, Onset Age: 70 Mother Stroke Social History Smoking Status: Never smoker Second Hand Exposure: Yes; Hx Alcohol Use: No Hx Substance Use: No Preferred Language: Bangladeshi Communication Ability: Effective Milieu Counselor Required: No Beliefs That Will Affect Care: None marital status: marital status details: 25 years Current Living Situation: Spouse and Family Current Living Situation Comment: youngest daughter lives with patient and current occupational status: employed current occupation: post office How many Children do You have: 1 How many Children do You have Comment: 1 daughter, 2 stepdaughters Other Information That Helps Us Care for You: No Feels Safe at Home: Yes Safety Concerns: Afraid for Self Childhood Exposure to Second-Hand Smoke: Yes caffeine: Yes (coffee and soda) during the past year weight has: remained stable Dental Care, Regularly: No Physical Activity Frequency: 1-2 Times per Week Physical Activity Frequency Comment: walks Seatbelt Use: sometimes Sunscreen Use: Yes Assistive Devices: Oxygen - at Night Assistive Devices Comment: 2 lPM @ HS Review of Systems Review of Systems: All systems reviewed & are unremarkable except as noted in HPI & below Nothing additional to add Physical Exam Physical Exam: General: no acute distress and stated age Head: normocephalic, no masses, lesions, tenderness or abnormalities Eyes: conjunctiva are pink and non-injected, sclera clear Neck: supple, no adenopathy, no bruits, normal jugular venous pulse, no hepatojugular reflux Chest: normal shape and normal respiratory effort Lungs: clear to auscultation and percussion Cardiac Exam: - regular rate & rhythm, no murmurs gallops or rubs - normal S1, normal S2 Pulses: 2(+) throughout Abdomen: abdomen soft, non-tender, no abnormal masses and no hepatosplenomegaly Musculoskeletal: no gait disturbance, no joint inflammation, no deforming arthritis Extremities: no edema and no cyanosis Neuro: grossly normal exam Results & Data ([facility]) Vital Signs (Past 12 Hours) Vital Signs Temp Pulse Pulse Resp BP Pulse Ox 07/19/20 08:53 88 07/19/20 07:45 36.8 C 85 19 115/76 96 07/19/20 03:56 36.6 C 86 18 115/80 94 07/18/20 23:12 37.3 C 92 H 18 119/86 95 Laboratory Results Laboratory Results - last 24 hr 07/18/20 07/18/20 07/18/20 11:24 11:24 11:24 WBC 5.17 RBC 3.93 L Hgb 11.5 L Hct 34.6 L MCV 88.0 MCH 29.3 MCHC 33.2 RDW Std Deviation 57.6 H RDW Coeff of Jake 17.8 H Plt Count 285 MPV 8.9 Immature Gran % (Auto) 0.6 Neut % (Auto) 81.6 Lymph % (Auto) 8.1 Price % (Auto) 5.4 Eos % (Auto) 3.7 Baso % (Auto) 0.6 Neut # (Auto) 4.22 Lymph # (Auto) 0.42 L Price # (Auto) 0.28 Eos # (Auto) 0.19 Baso # (Auto) 0.03 Immature Gran # (Auto) 0.03 H ESR PT 31.5 H INR 3.4 H Sodium 141 Potassium 3.6 Chloride 105 Carbon Dioxide 29 Anion Gap 6.0 BUN 8 Creatinine 0.60 Est Cr Clr Drug Dosing 136.4 Est GFR ( Amer) 124.0 Est GFR (Non-Af Amer) 107.0 BUN/Creatinine Ratio 13.8 Glucose 92 Calcium 9.6 Magnesium Total Bilirubin 0.7 AST 42 H ALT 59 Alkaline Phosphatase 115 Troponin I 0.036 C-Reactive Protein Total Protein 7.2 Albumin 3.4 Globulin 3.8 Albumin/Globulin Ratio 0.9 Lipase 98 Urine Color Urine Appearance Urine pH Ur Specific [place] Urine Protein Urine Glucose (UA) Urine Ketones Urine Blood Urine Nitrite Urine Bilirubin Urine Urobilinogen Ur Leukocyte Esterase Urine WBC (Auto) Urine RBC (Auto) U Hyaline Cast (Auto) U Epithel Cells (Auto) Urine Bacteria (Auto) COVID-19 Eval Order SARS-CoV-2, RNA, NAAT 07/18/20 07/18/20 07/18/20 11:24 11:24 11:32 WBC RBC Hgb Hct MCV MCH MCHC RDW Std Deviation RDW Coeff of Jake Plt Count MPV Immature Gran % (Auto) Neut % (Auto) Lymph % (Auto) Price % (Auto) Eos % (Auto) Baso % (Auto) Neut # (Auto) Lymph # (Auto) Price # (Auto) Eos # (Auto) Baso # (Auto) Immature Gran # (Auto) ESR 47 H PT INR Sodium Potassium Chloride Carbon Dioxide Anion Gap BUN Creatinine Est Cr Clr Drug Dosing Est GFR ( Amer) Est GFR (Non-Af Amer) BUN/Creatinine Ratio Glucose Calcium Magnesium Total Bilirubin AST ALT Alkaline Phosphatase Troponin I C-Reactive Protein 6.59 H Total Protein Albumin Globulin Albumin/Globulin Ratio Lipase Urine Color Dark Yellow Urine Appearance Turbid A Urine pH >= 9.0 H Ur Specific [place] 1.024 Urine Protein Negative Urine Glucose (UA) Negative Urine Ketones Negative Urine Blood Negative Urine Nitrite Negative Urine Bilirubin Negative Urine Urobilinogen Positive H Ur Leukocyte Esterase Trace H Urine WBC (Auto) 5-10 H Urine RBC (Auto) 0-4 U Hyaline Cast (Auto) 1-5 U Epithel Cells (Auto) >30 H Urine Bacteria (Auto) 1+ H COVID-19 Eval Order SARS-CoV-2, RNA, NAAT 07/18/20 07/18/20 07/18/20 11:57 11:57 16:54 WBC RBC Hgb Hct MCV MCH MCHC RDW Std Deviation RDW Coeff of Jake Plt Count MPV Immature Gran % (Auto) Neut % (Auto) Lymph % (Auto) Price % (Auto) Eos % (Auto) Baso % (Auto) Neut # (Auto) Lymph # (Auto) Price # (Auto) Eos # (Auto) Baso # (Auto) Immature Gran # (Auto) ESR PT INR Sodium Potassium Chloride Carbon Dioxide Anion Gap BUN Creatinine Est Cr Clr Drug Dosing Est GFR ( Amer) Est GFR (Non-Af Amer) BUN/Creatinine Ratio Glucose Calcium Magnesium Total Bilirubin AST ALT Alkaline Phosphatase Troponin I 0.060 H* C-Reactive Protein Total Protein Albumin Globulin Albumin/Globulin Ratio Lipase Urine Color Urine Appearance Urine pH Ur Specific [place] Urine Protein Urine Glucose (UA) Urine Ketones Urine Blood Urine Nitrite Urine Bilirubin Urine Urobilinogen Ur Leukocyte Esterase Urine WBC (Auto) Urine RBC (Auto) U Hyaline Cast (Auto) U Epithel Cells (Auto) Urine Bacteria (Auto) COVID-19 Eval [facility] [place]2, RNA, NAAT NEGATIVE 07/18/20 07/19/20 07/19/20 22:39 05:42 05:42 WBC 3.58 L RBC 3.58 L Hgb 10.3 L Hct 31.3 L MCV 87.4 MCH 28.8 MCHC 32.9 RDW Std Deviation 56.9 H RDW Coeff of Jake 17.7 H Plt Count 270 MPV 9.1 Immature Gran % (Auto) 1.4 Neut % (Auto) 67.6 Lymph % (Auto) 15.9 Price % (Auto) 9.2 Eos % (Auto) 3.9 Baso % (Auto) 2.0 Neut # (Auto) 2.42 Lymph # (Auto) 0.57 L Price # (Auto) 0.33 Eos # (Auto) 0.14 Baso # (Auto) 0.07 Immature Gran # (Auto) 0.05 H ESR PT 24.7 H INR 2.6 H Sodium Potassium Chloride Carbon Dioxide Anion Gap BUN Creatinine Est Cr Clr Drug Dosing Est GFR ( Amer) Est GFR (Non-Af Amer) BUN/Creatinine Ratio Glucose Calcium Magnesium Total Bilirubin AST ALT Alkaline Phosphatase Troponin I 0.056 H* C-Reactive Protein Total Protein Albumin Globulin Albumin/Globulin Ratio Lipase Urine Color Urine Appearance Urine pH Ur Specific [place] Urine Protein Urine Glucose (UA) Urine Ketones Urine Blood Urine Nitrite Urine Bilirubin Urine Urobilinogen Ur Leukocyte Esterase Urine WBC (Auto) Urine RBC (Auto) U Hyaline Cast (Auto) U Epithel Cells (Auto) Urine Bacteria (Auto) COVID-19 Eval Order SARS-CoV-2, RNA, NAAT 07/19/20 05:42 WBC RBC Hgb Hct MCV MCH MCHC RDW Std Deviation RDW Coeff of Jake Plt Count MPV Immature Gran % (Auto) Neut % (Auto) Lymph % (Auto) Price % (Auto) Eos % (Auto) Baso % (Auto) Neut # (Auto) Lymph # (Auto) Price # (Auto) Eos # (Auto) Baso # (Auto) Immature Gran # (Auto) ESR PT INR Sodium 141 Potassium 3.9 Chloride 110 H Carbon Dioxide 26 Anion Gap 5.0 BUN 7 Creatinine 0.41 L Est Cr Clr Drug Dosing 199.6 Est GFR ( Amer) 140.6 Est GFR (Non-Af Amer) 121.3 BUN/Creatinine Ratio 16.8 Glucose 97 Calcium 8.9 Magnesium 2.1 Total Bilirubin 0.7 AST 26 ALT 40 Alkaline Phosphatase 98 Troponin I C-Reactive Protein Total Protein 6.3 L Albumin 2.9 L Globulin 3.4 Albumin/Globulin Ratio 0.9 Lipase Urine Color Urine Appearance Urine pH Ur Specific [place] Urine Protein Urine Glucose (UA) Urine Ketones Urine Blood Urine Nitrite Urine Bilirubin Urine Urobilinogen Ur Leukocyte Esterase Urine WBC (Auto) Urine RBC (Auto) U Hyaline Cast (Auto) U Epithel Cells (Auto) Urine Bacteria (Auto) COVID-19 Eval Order SARS-CoV-2, RNA, NAAT Medications Administered Current Inpatient Medications Acetaminophen (Acetaminophen 325 Mg Tab) 650 mg PO Q4H PRN PRN Reason: Pain or Fever Stop: 08/17/20 15:56 Last Admin: 07/18/20 23:24 Dose: 650 mg Documented by: Al Hydrox/Mg Hydrox/Simethicone (Aluminum/Magnesium Susp 30 Ml Udc) 15 ml PO Q4H PRN PRN Reason: Dyspepsia Stop: 08/17/20 15:56 Ergocalciferol (Ergocalciferol 50,000 Units 1250 Mcg Cap) 50,000 units PO We@0900 [facility] Stop: 08/18/20 08:59 Last Admin: 07/19/20 08:48 Dose: 50,000 units Documented by: Lorazepam (Lorazepam 0.5 Mg Tab) 0.5 mg PO [facility] Stop: 08/17/20 20:59 Last Admin: 07/18/20 20:32 Dose: 0.5 mg Documented by: Magnesium Hydroxide (Magnesium Hydroxide Susp 30 Ml Udc) 30 ml PO Q12H PRN PRN Reason: Constipation Stop: 08/17/20 15:56 Ondansetron HCl (Ondansetron Inj 2 Mg/Ml 2 Ml Vial) 4 mg IV Q6H PRN PRN Reason: Nausea Stop: 08/17/20 15:56 Oxycodone/Acetaminophen (Oxycodone/Acetaminophen 5mg/325mg Tab) 1 tab PO Q4H PRN PRN Reason: Pain Stop: 08/01/20 15:56 Pantoprazole Sodium (Pantoprazole 40 Mg Tab) 40 mg PO QAM [facility] Stop: 08/18/20 09:44 Polyethylene Glycol (Polyethylene (Miralax) 17 Gm Pack) 17 gm PO DAILY PRN PRN Reason: Constipation Stop: 08/17/20 15:56 Sertraline HCl (Sertraline Hcl 50 Mg Tablet) 50 mg PO [facility] Stop: 08/17/20 20:59 Last Admin: 07/18/20 20:32 Dose: 50 mg Documented by: Warfarin Sodium (Warfarin Sod 7.5 Mg Tab) 7.5 mg PO DAILY@1800 [facility] Stop: 08/18/20 17:59 (1) Pulmonary embolism Acute cor pulmonale presence: with acute cor pulmonale Chronicity: acute Pulmonary embolism type: unspecified Qualified Code(s): I26.09 - Other pulmonary embolism with acute cor pulmonale (2) Chest pain Chest pain type: unspecified Qualified Code(s): R07.9 - Chest pain, unspecified
--- NOTE | 2020-07-19 15:43 | Discharge Summary ---
Date of Service July 19, 2020 Admission HPI Per Admitting Provider This is a 50-year-old female who has significant past medical history of morbid obesity, history of gastric bypass, active right breast cancer status post mastectomy currently undergoing IV chemotherapy, nocturnal hypoxemia on 2 L of O2 at bedtime, depression, and chronic anemia who presents to ED secondary to chest tightness and shortness of breath x3 days. Of significance patient was hospitalized 05/2020 secondary to acute pulmonary embolism and DVT. She had an echocardiogram done as outpatient on 05/09 which revealed moderate to severe dilated right ventricle, reduced right ventricular systolic function and elevated pulmonary artery systolic pressure. She was referred to ED where she was diagnosed with PE, started on IV heparin, transition to Lovenox and eventual Coumadin. Imaging did also reveal bilateral lower extremity DVTs and bilateral popliteal veins. Since discharge she had been doing well until Friday after work. Over the weekend she was very tired and did not do a whole lot. She noti bryant increased sleeping and fatigue. Yesterday when she was doing laundry she developed chest tightness that went from the top of her epigastrium up to her throat. She does not describe it as a crystal pain but more of a tightness. Would worsen with deep breathing. Not associated with movement or lying down. Was associated with shortness of breath especially with exertion. Denies associated diaphoresis or nausea. She also noticed palpitations and elevated heart rate. Yesterday she ended up lying down for a nap and felt her symptoms improved. She did use her pulse ox at home which read as high as 120s. Symptoms returned while she was at work today in the seated position. She also felt very labored when talking with her coworkers. She denies any recent illness, fever, chills, sweats, lightheadedness, dizziness, URI symptoms, cough, shortness of breath at rest, hemoptysis, nausea, vomiting, abdominal pain, dysuria, increased urgency or frequency with urination, melena or hematochezia. She been compliant with Coumadin. She states she does not go to the bathroom regularly, last BM was yesterday and very minimal. She does have history of acid reflux and feels maybe symptoms could be similar. Positive family history of CAD with father who underwent CABG in his 70s. She is a non-smoker. In ED she remained hemodynamically stable although mildly tachycardic. Lab work notable for H&H 11.5 and 34.6 WBC 5.17, platelet 285, ESR 47, INR 3.4, BUN 8, creatinine 0.60, AST 42, troponin 0.036, CRP 6.59, urinalysis positive for urobilinogen, leukocyte esterase, greater than 30 epithelial cells and +1 bacteria. Chest x-ray negative for acute abnormality. Chest CTA reveals decreased pulmonary emboli compared to the study from 05/09 with residual linear pulmonary emboli noted in the segmental branches of left lower lobe, no pleural effusion adenopathy or airspace consolidation. No new pulmonary emboli. Principal Diagnosis CHEST PAIN , NON CARDIAC HX OF PULMONARY EMBOLISM GERD Discharge Exam Constitutional WD/WN, vitals as above Eyes PERRL, conjunctivae normal, anicteric sclerae ENMT external ear and nose normal, oropharynx normal Neck trachea midline, no thyromegaly Respiratory normal respiratory effort, lungs clear to auscultation Cardiovascular RRR, no murmur, no edema Gastrointestinal (Abdomen) Percussion/Palpation: abdomen soft Musculoskeletal no cyanosis or clubbing, extremities motor strength 5/5 Skin no rashes, warm and dry Neurologic PERRL, EOMI, accommodation nl, no face palsy, no dysarthria Psychiatric A+Ox3, euthymic affect Discharge Data Allergies Allergy/AdvReac Type Severity Reaction Status Date / Time No Known Allergies Allergy Unverified 07/18/20 12:16 Consultations 07/18/20 13:56 ED Decision to Admit Stat 07/18/20 14:34 Consult Cardiology Routine Ordered Studies 07/18/20 11:31 CT angio chest PE protocol Stat Hospital Course (1) Chest pain: (2) Exertional dyspnea: symptoms has completely resolved , since admission This is a 50-year-old female who has significant past medical history of morbid obesity, history of gastric bypass, active right breast cancer status post mastectomy currently undergoing IV chemotherapy, nocturnal hypoxemia on 2 L of O2 at bedtime, depression, and chronic anemia who presents to ED secondary to chest tightness and shortness of breath x3 days. CTA chest reveals decreasing pulmonary emboli, no aortic dissection, pulmonary edema or pulmonary consolidation appreciate input from cardiology no evidence of ACS symptoms could be secondary to acid reflux /GERD -PPI ordered chronic elevation of troponin possibly due to PE , ECHO this admission shows improvement of rt heart strain on Coumadin , INR therapeutic no further cardiac work up needed stable to be discharged home today (3) Pulmonary embolism: dx 05/09 along with b/l lower ext DVT on warfarin, INR 3.4 CTA of chest as above (4) Nocturnal hypoxemia: 2 L of O2 at HS Recommend formal sleep study eval at discharge (5) Breast cancer, right breast: s/p mastectomy with axillary lymph node dissection Currently undergoing chemotherapy with Taxol, last treatment 07/13 Next treatment 07/[address] Bonilla (6) DVT prophylaxis: warfarin Disposition : stable to be discharged home today Total Time Total Time Spent Total Time Spent (In Minutes): 35 mins Total Time Includes: Examination of the Patient, Discharge Planning and Medication Reconciliation Discharge Plan Discharge Items Patient Disposition: Home - Self-Care Reason For Visit: CHEST PAIN/SOB; KNOWN PE Discharge Diagnosis: CHEST PAIN , NON CARDIAC HX OF PULMONARY EMBOLISM GERD Activity: Resume your previous activity Non-emergency contact: Primary Care Provider Call non-emergency contact if: you have any medication questions Follow-up/Referrals: Latrice Lemons DO [Primary Care Provider] - 07/25/20 11:00 am (Date & Time 07/25/2020 11:00 AM Provider Latrice Lemons DO Department [facility] ) Diet: Regular Addtl Attending Provider Instructions: Please take all medications as instructed on discharge list below. Hospital follow up scheduled with your Family Physician as above Please call if you have any questions or problems. You can reach a [facility] hospitalist on duty at [facility] 24 hours a day by calling [phone] Pending Studies at Discharge: No Stand-Alone Forms: [facility], Smoking Cessation Medications and DC Order Prescriptions: New pantoprazole 40 mg Tablet,Delayed Release (Dr/Ec) 40 mg PO QAM 30 Days Qty: 30 RF: 3 Continued ergocalciferol (vitamin D2) [Vitamin D2] 1,250 mcg (50,000 unit) Capsule 1,250 mcg PO WE RF: 0 paclitaxel 6 mg/mL Concentrate 0 mg IV TH RF: 0 warfarin 5 mg tablet 7.5 mg PO DAILY@1800 RF: 0 sertraline 50 mg Tablet 50 mg PO HS RF: 0 lidocaine-prilocaine 2.5-2.5 % cream 1 applic topical .PRN/UD PRN (Reason: Pain) RF: 0 lorazepam 0.5 mg tablet 0.5 mg PO HS RF: 0 oxycodone-acetaminophen 5-325 mg tablet 1 tab PO Q4H PRN (Reason: Pain) RF: 0 cyanocobalamin (vitamin B-12) 1,000 mcg/mL solution 1,000 mcg IM MONTHLY RF: 0 ondansetron HCl 8 mg tablet 8 mg PO Q8H PRN (Reason: Nausea) RF: 0 prochlorperazine maleate 10 mg tablet 10 mg PO Q6H PRN (Reason: Nausea) RF: 0 Discharge Orders: Discharge Order (Routine); Ordered 07/19/20 Ordered By: Jennifer Adrian Admission Data Admit Date/Time: 07/18/20 13:56 Attending Provider: Jennifer Adrian Admit Provider: Barry Sen Primary Care Provider: Latrice Lemons Other Providers: Barry Sen ; Mario Reinoso Other Interventions: Discharge Summary Assessment (RN) Last Done: 07/19/20 15:38
[2020-07-19] MEDS ORDERED: WARFARIN SOD 7.5 MG TAB PO SCH (18:00)
--- NOTE | 2020-07-20 06:01 | Electrocardiogram Report ---
Test Reason : Blood Pressure : / mmHG Vent. Rate : 088 BPM Atrial Rate : 088 BPM P-R Int : 160 ms QRS Dur : 086 ms QT Int : 380 ms P-R-T Axes : 055 007 041 degrees QTc Int : 459 ms Normal sinus rhythm Low voltage QRS Nonspecific T wave abnormality Abnormal ECG When compared with ECG of 18-JUL-2020 11:17, No significant change was found Confirmed by Karlos Garcia ([id number]) on 07/20/2020 6:00:57 AM Referred By: REFERRED SELF Confirmed By:Karlos Garcia
== END 2020-07-19 16:45 | disposition home or self-care (01) ==
LOC: 2S 11:05 → ED 11:05 → SUATTDRO 13:56 → 2S 15:12